=== PATIENT | female | born 1940 | race Caucasian/White ===

== ENCOUNTER → 2020-09-11 12:25 | Outpatient (CLI) | payer MEDICARE, OTHER, SELFPAY ==
--- NOTE | ~2020-09-11 | MM_ITS ---
EXAMINATION: MM screening sánchez BI w salma HISTORY: Screening TECHNIQUE: Craniocaudal and mediolateral oblique 3-D tomosynthesis images were obtained and synthetic 2-D images were generated. CAD analysis was submitted and interpreted. COMPARISON: Comparison to multiple prior studies sequentially, with oldest reviewed study dated 03/2012. BREAST PARENCHYMAL COMPOSITION: There are scattered areas of fibroglandular density. FINDINGS: There is no evidence of suspicious mass, calcification, or architectural distortion to sugg est malignancy in either breast. There has been no suspicious interval change. IMPRESSION: 1. No mammographic evidence of malignancy. 2. Recommend routine screening mammography in one year. BI-RADS Category 1: Negative Reviewed, dictated and finalized at location A. R DEVELOPMENT ENGINEER
== END ==
PROVIDERS: PCP Family Medicine; Visit Provider Family Medicine
DX: Z12.31 Encounter for screening mammogram for malignant neoplasm of breast (principal)
CPT/HCPCS: 77063; 77067

== ENCOUNTER 2022-05-17 13:37 | Outpatient (CLI) | payer MEDICARE, OTHER, SELFPAY ==
[2022-05-17 17:48] LABS: Urine Cotinine NEGATIVE
== END 2022-05-17 13:38 | disposition home or self-care (01) ==
LOC: ANHSURGERY 13:55
PROVIDERS: PCP Nurse Practitioner Adult Health; Visit Provider Orthopaedic Surgery
DX: M16.11 Unilateral primary osteoarthritis, right hip (principal); Z01.818 Encounter for other preprocedural examination
CPT/HCPCS: 80307; 87070

== ENCOUNTER 2022-06-01 10:40 | Inpatient (IN) | payer MEDICARE, OTHER, SELFPAY ==
--- NOTE | 2022-05-17 13:49 | PC.NURSE ---
PRE-OP INSTRUCTIONS, PLEASE READ CAREFULLY Report to the Outpatient Waiting Room, entrance under the green pavilion located off [facility], at time _0600_ on date _05/31/22_. OR Time: _0730_. - You and your visitor will be asked to self-screen and do not enter if you have any COVID symptoms. - A mask is required within the hospital. - Only one visitor and NO children visitors are allowed at this time. - The patient visitor is requested to leave or wait in car when not with patient due to restrictions. - PACK A SMALL OVERNIGHT BAG AND LEAVE IN THE CAR ALONG WITH YOUR WALKER. VISITING HOURS 10AM-8PM. PARK IN FRONT PARKING LOT AND USE MAIN HOSPITAL ENTRANCE. Patients may have clear liquids (water, carbonated beverages, clear teas, apple juice) until 3 hours prior to surgery (0430 AM) with a maximum of 20 ounces. - No food from midnight until time of surgery Take the following medications with a SIP of water the morning of surgery: _NONE__ Medications to discontinue per DR. JESSICA - _ALEVE 7 DAYS PRIOR TO SURGERY, Date to take last dose 05/23/22_ Medications to discontinue per ANESTHESIA - _VITAMINS AND SUPPLEMENTS 3 DAYS PRIOR TO SURGERY, Date to take last dose 05/27/22_ Please no make-up, nail serbian, hairspray, perfume, deodorant, or body powder the day of surgery. No jewelry (including any body piercings) or valuables the day of surgery, leave them at home. Please take a shower or bath the night before, or the morning of, surgery with an antibacterial soap. Wear comfortable, loose fitting clothing. - Jewelry must be removed prior to entering the operating room. Rings and piercings that are not removed may be cut off. - The hospital will not accept responsibility for valuables. - Please leave all valuables, including medications, at home the day of surgery. If you are going home after surgery, a licensed truck driver instructor must drive you home. - NO public transportation without another adult. - We recommend that an adult stay with you for 24 hours following discharge. - We also recommend that you do not drive, make important decision, drink alcoholic beverages, or take any drugs that were not prescribed by your health care provider for at least 24 hours after your discharge time. Follow any additional instructions given to you from your surgeon. If you or anyone in your household have experienced Covid symptoms in the past week, please notify your surgeon or the nurse liaison at the phone number below for possible testing. Instructions given to ____PT and asked if any additional questions and then verbalized understanding. Patient advised to call surgeon office or pre surgery nurse liaison [phone] if any additional questions.
[2022-05-17 14:14] VITALS: BP 160/74; PULSE 64; RESP 18; TEMP 37.1; O2SAT 96; BMI 28.8
--- NOTE | 2022-05-28 08:34 | PM.IMHP ---
H&P: HPI History of Present Illness Date/Time: 05/28/22 08:34 Chief Complaint: Right hip DJD Narrative: 82-year-old female patient of Zheng Perdue presents today for a right anterior total hip arthroplasty. Patient has had progression of the osteoarthritis of the right hip over the course of the last 9-10 months. She has also had worsening her symptoms. At this point she is having symptoms on a daily basis. It is interfering with her normal activities of daily living. She is a relatively healthy and active 82-year-old and wishes to remain as active as possible. She feels that the pain in the hip is bothering her enough that she would like to proceed with total hip arthroplasty at this point. Review of Systems Review of Systems: All systems reviewed & are unremarkable except as noted in HPI and below PMFSH Social History Social History Smoking status: Never smoker Second hand tobacco smoke exposure: No Additional smoking assessment comments: PT DENIES ALL FORMS OF TOBACCO USE Alcohol intake: current Drinks per week: 1 Substance use: never Substance use type: does not use Spiritual care concerns: No Meds Home Medications and Allergies Home Medications Medication Instructions Recorded Confirmed Type cholecalciferol (vitamin D3) 25 25 mcg PO HS 05/17/22 05/17/22 History mcg (1,000 unit) capsule coenzyme Q10 100 mg capsule 100 mg PO HS 05/17/22 05/17/22 History (CoQ-10) cyanocobalamin (vitamin B-12) 1,000 mcg PO HS 05/17/22 05/17/22 History 1,000 mcg tablet fluorometholone 0.1 % eye 1 drp BID 05/17/22 05/17/22 History drops,suspension hydrochlorothiazide 25 mg tablet 25 mg HS 05/17/22 05/17/22 History irbesartan 300 mg tablet 300 mg HS 05/17/22 05/17/22 History naproxen sodium 220 mg tablet 220 mg PO Q12H PRN Pain 05/17/22 05/17/22 History (Aleve) simvastatin 20 mg tablet 20 mg HS 05/17/22 05/17/22 History timolol maleate 0.5 % eye drops 1 drp BID 05/17/22 05/17/22 History vit C 250 mg-vit E 90 mg-zinc 40 1 tablet PO HS 05/17/22 05/17/22 History mg-copper 1 [id number] capsule (PreserVision AREDS-2) Allergies Allergy/AdvReac Type Severity Reaction Status Date / Time bacitracin AdvReac Rash Verified 05/17/22 14:16 [From Neosporin ([id number])] neomycin AdvReac Rash Verified 05/17/22 14:16 [From Neosporin ([id number])] polymyxin B AdvReac Rash Verified 05/17/22 14:16 [From Neosporin ([id number]-[id number])] SULFA AdvReac Rash Uncoded 05/17/22 14:16 Exam Narrative: 78-year-old female alert pleasant. She is alert and oriented. She walks with a moderate limp. She is 5 ft 3 and 168 lb. Her right hip flexes to 115, externally rotates to 20 and internally rotates to 10. Range of motion of the hip causes her anterior lateral groin pain. Stinchfield maneuver is weak due to pain in the groin and anterior lateral hip. She has normal abduction strength in the lateral position and no tenderness over the greater trochanter. No swelling in the right lower extremity. She has prominent varicose veins. 2+ dorsalis pedis 1+ post tibial artery pulse. Normal sensation in the right leg. Skin in the hip and groin crease are all normal. 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 She has had significant progression from September of last year, at that time she only had moderate arthritis. Her symptoms bother her on a daily basis. Again she is very active 82-year-old and wishes to remain active. She would like to proceed with total hip arthroplasty. Surgical procedure as well as the risks and com
--- NOTE | 2022-05-28 13:01 | WPDANESEPPF ---
Anes - Initial Pre Proc Eval Procedure: Operation Date: 05/31/22 07:30 Proposed Procedures p Right Total Hip Arthroplasty, Anterior Approach - Kevin Melara MD Date/Time: 05/28/22 13:01 Surgeon: Kevin Melara MD Pre Op Diagnosis: Rt Hip OA Patient Data Age: 82 Gender: F Height: 1.63 m Weight: 76.3 kg Last Vital Signs Temp 98.8 F 05/17/22 14:14 Pulse 64 05/17/22 14:14 Resp 18 05/17/22 14:14 BP 160/74 H 05/17/22 14:14 Pulse Ox 96 05/17/22 14:14 O2 Del Method Room Air 05/17/22 14:14 Allergies Allergy/AdvReac Type Severity Reaction Status Date / Time bacitracin AdvReac Rash Verified 05/31/22 06:35 [From Neosporin ([id number])] neomycin AdvReac Rash Verified 05/31/22 06:35 [From Neosporin ([id number])] polymyxin B AdvReac Rash Verified 05/31/22 06:35 [From Neosporin ([id number]-[id number])] SULFA AdvReac Rash Uncoded 05/31/22 06:35 Home Medications Medication Instructions Recorded Confirmed Type cholecalciferol (vitamin D3) 25 25 mcg PO HS 05/17/22 05/31/22 History mcg (1,000 unit) capsule coenzyme Q10 100 mg capsule 100 mg PO HS 05/17/22 05/31/22 History (CoQ-10) cyanocobalamin (vitamin B-12) 1,000 mcg PO HS 05/17/22 05/31/22 History 1,000 mcg tablet fluorometholone 0.1 % eye 1 drp BID 05/17/22 05/31/22 History drops,suspension hydrochlorothiazide 25 mg tablet 25 mg HS 05/17/22 05/31/22 History irbesartan 300 mg tablet 300 mg HS 05/17/22 05/31/22 History naproxen sodium 220 mg tablet 220 mg PO Q12H PRN Pain 05/17/22 05/31/22 History (Aleve) simvastatin 20 mg tablet 20 mg HS 05/17/22 05/31/22 History timolol maleate 0.5 % eye drops 1 drp BID 05/17/22 05/31/22 History vit C 250 mg-vit E 90 mg-zinc 40 1 tablet PO HS 05/17/22 05/31/22 History mg-copper 1 [id number]-[id number] capsule (PreserVision AREDS-2) Patient hx anesthesia problems: none Family hx anesthesia problems: none Results Review: All pre-operative results and documents have been reviewed as part of the pre-operative evaluation. [facility] Past Medical History Medical History (Updated 05/28/22 @ 13:01 by Silver Bryant MD) Arthritis Hypercholesteremia Hypertension Social History Social History Smoking status: Never smoker Second hand tobacco smoke exposure: No Additional smoking assessment comments: PT DENIES ALL FORMS OF TOBACCO USE Alcohol intake: current Drinks per week: 1 Substance use: never Substance use type: does not use Living arrangements: with family Spiritual care concerns: No Anes - Eval Final PreProcedure Day of Procedure 05/28/22 13:01 Patient weight: normal Heart: regular rate and rhythm Lungs: clear to auscultation Airway: Mallampati scale class III Neurological: alert and oriented Last oral intake: >/= 8 hours ASA classification: II Emergent: no Anesthetic plan: proceed Anesthesia type and monitoring: general ETT and standard monitoring Results Review: All pre-operative results and documents have been reviewed as part of the pre-operative evaluation. Informed Consent: The patient's anesthetic plan and its attendant risks and benefits were discussed with the patient/family/POA. Questions were solicited and answers provided to the satisfaction of the patient/family/POA.
[2022-05-31] VITALS (15 sets, daily range): BP systolic 119–161; BP diastolic 44–72; PULSE 48–67; RESP 9–21; TEMP 36–37.3; O2SAT 94–100
[2022-05-31] MEDS: LACTATED RINGERS 1,000 ML 30 ML IV CONT ×2 (06:48→10:57)
[2022-05-31] MEDS: ACETAMINOPHEN 500 MG TABLET 1000 MG PO ×4 (07:12→23:02)
--- NOTE | 2022-05-31 07:15 | WPDHPUPDATE1 ---
History and Physical Update Update Date/Time: 05/31/22 07:15 History and Physical has been reviewed, including an updated exam of the patient. There are NO changes in the patient's condition. Risks, benefits, and alternatives have been discussed and questions answered. Patient agrees to proceed with procedure.
[2022-05-31] MEDS: TRANEXAMIC ACID 1,000MG/ISO100 1,000 MG/100 ML BAG 200 MG IVPB (07:16)
[2022-05-31] MEDS: ceFAZolin 2 GM/D5W 50 ML 2 GM/50 ML BAG IVPB (07:28)
[2022-05-31] MEDS: ceFAZolin SODIUM 1 GM VIAL 3 GM IRRIGATION (08:15)
[2022-05-31] MEDS: TRANEXAMIC ACID 1,000 MG/10 ML AMPUL 1000 MG IV PUSH (10:29)
[2022-05-31] MEDS: ceFAZolin SODIUM 1 GM VIAL IV PUSH (10:29)
--- NOTE | 2022-05-31 10:41 | W.PM.PROC2 ---
Procedure Note - Detailed Date of Procedure 05/31/22 Pre-op Diagnosis Rt Hip OA Post-op Diagnosis Same Procedure Performed Direct anterior approach right total hip arthroplasty Surgeon Kevin Melara MD Email Marketing Assistant Tracie Description of Procedure Patient was brought to the operating room and general anesthesia was administered. Extra padding placed on the feet which were placed in the boots and she was transferred to the OSI Sharon table. SCDs on the calves and running. Right hip prepped draped usual fashion. 10 cm longitudinal incision was made starting 3 cm lateral to the ASIS. Dissection was carried down to the fascia over the tensor fascia sonal which was longitudinally incised. Fascia was elevated off the anterior 1/2 the tensor fascia sonal muscle. Interval between rectus femoris and tensor fascia sonal developed and the crossing branches of ascending lateral femoral 2nd circumflex vessels were isolated ligated with suture divided. Retractor placed over the anterior surface of the capsule of the hip the hip abducted internally rotated and the gluteus minimus elevated off the lateral capsule. Inverted T capsulotomy was performed. Femoral neck osteotomy was made according to preoperative templating. Sitting quite get low enough to match perfectly the preoperative templating as she had a very low neck cut planned. Femoral head was removed without difficulty. It measured 42-1/2 mm in maximum diameter. The acetabulum was exposed labrum excised. Remaining articular cartilage removed with curette. Hip was externally rotated and extended and the interval between conjoined tendon and piriformis tendon was incised allowing the piriformis to flipped posteriorly. The leg back again in the neutral rotation external rotation and traction the acetabulum was exposed and prepared. We reamed up to a size 45 which achieved peripheral reaming we lightly reamed with a 46 in chose the 46 shell. The trial had an excellent fit. A 46 component was impacted and seated with an excellent press fit. This was placed at 40? of abduction and anteversion such that the anterior rim of the acetabular component was flush with the anterior rim of the [place] acetabulum. A single screw was placed into the ilium for additional fixation and the 28 mm inner diameter liner was impacted into the 46 shell thought difficulty. The femur was broached up to a size 3. We could see that had a tiny bit of wiggle. We trialed with the +5 and saw that we were a little bit high on the neck cut. We calcar planed and used a sought to accomplish that and we were able to seat the size 4 broach 2 mm below level of the previously cut neck and on trying with a 1.5 we had equal offset. We increased the leg length as planned by about 4 mm from preop and had appropriate stability. Four broach had complete torsional stability and could not be removed with the concise gun but needed the single offset broach handle and mallet to remove it it was quite tight. We calcar planed again and seated the real size 4 high offset Actis stem which again achieved an excellent tight fit. We trialed 1 more time the 1.5 head had ample shock. The 5 head was too tight no Shuck. We chose the 1.5 stainless steel head which was impacted firmly on the clean and dried trunnion. The wound again was irrigated with antibiotic solution and the hip reduced stability reconfirmed. Arthrotomy was closed using 2. Vicryl was in the capsule reapproximated superiorly and local anesthetic injection injection placed in the periarticular soft tissues. Fascia was closed with running 1. Vicryl skin with 2 subcutaneous Vicryl and glue EBL was 350. A drain was placed deep in the subcu layer. She received 125 back as Cell Saver. 3rd g Ancef 2nd g tranexamic acid given at time of wound closure. Bone quality was very good we will our be weight-bearing as tolerated postoperatively. Implants Nimbus Cloud Appsuy Estimated Blood Loss 350 Drains Yes Pathology None s
--- NOTE | 2022-05-31 11:02 | PM.OP ---
Procedure Note - Brief Procedure Note - Brief Date of procedure: 05/31/22 Pre-op diagnosis: Rt Hip OA Right hip DJD Procedure performed: Right anterior total hip arthroplasty Description of procedure: 82-year-old female who underwent right total hip arthroplasty on 05/31. Was involved in the procedure including positioning patient on the OR table. Draping as well as assisting to the time of surgery as a 1st assist. Assisting patient to recovery room as well. 3-1/2 hours were spent. Surgeon: RODRIGO Harry
--- NOTE | 2022-05-31 13:01 | ADMGEN ---
This patient, Donna Good, was admitted to 2 Medical Room 246-01. Patient/family oriented to hospital policies and general routines including ID bracelet, bed and alarms, visiting hours, pain management, procedures, bathroom and other care routines, personal items, smoking policy, room service/diet, and visiting hours. Information on how to activate the Rapid Response Team has been discussed. Patient/Family are encouraged to report perceived risks to care and to ask questions if they do not understand what they are told or what they should do. Report received from Abby PIERRE
[2022-05-31] MEDS: oxyCODONE HCL (*CRX) 2.5 MG TAB IR PO ×3 (13:39→20:20)
--- NOTE | 2022-05-31 14:40 | WPDCN ---
Assessment and Plan Assessment and plan (1) Osteoarthritis of right hip: Code(s): M16.11 - Unilateral primary osteoarthritis, right hip Status: Acute Assessment and Plan: Postoperative day 0 status post direct anterior approach right total hip arthroplasty. Wound care, pain control, and DVT prophylaxis deferred to Dr. Melara. Check labs in a.m.; hemoglobin hematocrit ordered for this evening given EBL. PT/OT consulted. (2) Hypertension: Code(s): I10 - Essential (primary) hypertension Status: Acute Assessment and Plan: Blood pressures are stable postoperatively. Resume antihypertensives and monitor daily. (3) Hypercholesteremia: Code(s): E78.00 - Pure hypercholesterolemia, unspecified Status: Acute Assessment and Plan: Continue statin. Check LFTs in a.m. Plan Thank you for allowing us to participate in this patient's care. Please do not hesitate to contact us with any questions. Supervising physician for this medical consultation is Dr. Jevon Medina. HPI Data of Consult Date/Time: 05/31/22 14:40 Requesting Physician: Kevin Melara MD Consult Narrative Reason for consult: Postoperative medical management. Narrative: This is a pleasant 82-year-old female with hypertension and hypercholesterolemia whom the hospitalist service has been consulted for help managing her medical condition postoperatively. She reports progressive pain in her right hip related to degenerative joint disease over the past 9 to 10 months and unfortunately she continues to have symptoms on a daily basis despite outpatient treatments. She elected for surgery today and she is now status post direct anterior approach right total hip arthroplasty per Dr. Melara. Her surgery was performed under general anesthesia with no immediate complications documented an estimated blood loss of 350 mL. She has had some nausea but no vomiting and she was able to eat some turkey for lunch. Her pain and is well controlled at this time and she has no specific complaints. She specifically denies fever, chills, sweats, chest pain, shortness breast, vomiting, and paresthesias/skin color/temperature changes distal to the surgical site. Upon discharge she will return home with her of 58 years (anniversary was yesterday) and he will be helping her out as needed. Review of Systems Review of Systems: Twelve systems were reviewed and are negative except for as per HPI. 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 History of left breast biopsy (03/22/00) Benign histology. 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 Social History Social History (Updated 05/31/22 @ 14:23 by Ingrid Hobbs PA-C) Social History: Surrogate medical decision maker: Drew Good, spouse. Code status: Full code. Smoking status: Never smoker Second hand tobacco smoke exposure: No Alcohol intake: current Drinks per week: 1 Substance use: never Substance use type: does not use Living arrangements: with family Occupation/Education: retired Spiritual care concerns: No Meds Home Medications and Allergies Home Medications Medication Instructions Recorded Confirmed Type cholecalciferol (vitamin D3) 25 25 mcg PO HS 05/17/22 05/31/22 History mcg (1,000 unit) capsule coenzyme Q10 100 mg capsule 100 mg PO HS 05/17/22 05/31/22 History (CoQ-10) cyanocobalamin (vitamin B-12) 1,000 mcg PO HS 05/17/22 05/31/22 History 1,000 mcg tablet fluorometholone 0.1 % eye 1 drp BID 05/17/22 05/31/22 History drops,suspension hydrochlorothiazide 25 mg tablet 25 mg HS 05/17/22 05/31/22 Histor
[2022-05-31] MEDS: SENNA/DOCUSATE SODIUM TABLET 2 TAB PO (17:04)
[2022-05-31 18:34] LABS: Hematocrit 33.9 % (37.0-47.0); Hemoglobin 11.2 g/dL (12.0-15.0)
[2022-05-31] MEDS: FAMOTIDINE 20 MG TABLET PO (20:19)
[2022-05-31] MEDS: CHOLECALCIFEROL 1,000 UNITS TABLET 1000 UNITS PO (20:19)
[2022-05-31] MEDS: hydroCHLOROthiazide 25 MG TABLET BY MOUTH (20:20)
[2022-05-31] MEDS: SIMVASTATIN 20 MG TABLET BY MOUTH (20:20)
[2022-05-31] MEDS: IRBESARTAN 150 MG TABLET 300 MG BY MOUTH (20:20)
[2022-05-31] MEDS: TIMOLOL MALEATE 0.5% OP SOLN 5 ML BOTTLE 1 DROP EACH EYE (20:21)
[2022-06-01] VITALS (7 sets, daily range): BP systolic 102–132; BP diastolic 49–57; PULSE 51–76; RESP 14–18; TEMP 36.1–36.7; O2SAT 93–97
--- NOTE | ~2022-06-01 | XR_ITS ---
EXAMINATION: XR hip RT 1V w AP pelvis DATE: 05/31/2022 10:56 INDICATION: Total right hip arthroplasty. Postop. TECHNIQUE: An anteroposterior view of the pelvis and single view of right hip were obtained. COMPARISON: None. FINDINGS: There is a total right hip arthroplasty in near-anatomic alignment. No fracture. There is m ild left hip osteoarthritis. There is gas in the soft tissues around right hip, consistent with recen t surgery. A surgical drain is noted. IMPRESSION: 1. Total right hip arthroplasty in near-anatomic alignment. 2. Mild left hip osteoarthritis. Reviewed, dictated and finalized at location A.
--- NOTE | ~2022-06-01 | XR_ITS ---
EXAMINATION: XR surgery orthopedic DATE: 05/31/2022 10:31 INDICATION: Intraoperative evaluation during right total hip arthroplasty TECHNIQUE: Single fluoroscopic frontal images of the right hip was obtained during procedure performe d by Dr. Melara. Radiologist was not present for the procedure or imaging. The amount of fluoroscopy time used during this procedure was 0.5 minutes. COMPARISON: None. FINDINGS: Intraoperative image during a right total hip arthroplasty demonstrate placement of a noncemented rig ht total hip arthroplasty which is in near-anatomic alignment. The acetabular component is affixed wi th at least a single screw. Portions of the pelvis are obscured excluded from the [id number]. No f ractures in the visualized bones. Expected small amount of gas in the soft tissues of the operative b ed. IMPRESSION: 1. Expected appearance during right total hip arthroplasty. Reviewed, dictated and finalized at location A.
[2022-06-01] MEDS: oxyCODONE HCL (*CRX) 2.5 MG TAB IR PO ×3 (01:01→08:47)
[2022-06-01] MEDS: ACETAMINOPHEN 500 MG TABLET 1000 MG PO ×3 (05:01→17:02)
[2022-06-01 05:12] LABS: Basophils Percent Auto 0.3 % (0.2-1.2); Hematocrit 32.6 % (37.0-47.0); Hemoglobin 11.1 g/dL (12.0-15.0); Immature Granulocyte Absolute 0.08 K/mm3 (0.00-0.031); Immature Granulocyte Percent A 0.5 % (0-0.5); Lymphocytes Absolute Auto 1.16 K/mm3 (0.9-3.2); Lymphocytes Percent Auto 7.4 % (18.3-44.2); Mean Corpuscular Hemoglobin 34.2 pg (26-34); Mean Corpuscular Volume 100.3 fl (80-100); Mean Platelet Volume 11.7 fl (7.4-10.4); Monocytes Absolute Auto 0.9 K/mm3 (0.1-0.6); Monocytes Percent Auto 5.5 % (2.6-8.5); Neutrophils Absolute Auto 13.6 K/mm3 (1.3-6.7); Neutrophils Percent Auto 86.3 % (45.5-73.1); Platelet Count Result 172 k/mm3 (150-375); Red Blood Count 3.25 M/mm3 (4.2-5.4); Red Cell Distribution Width 12.6 % (11.5-14.5); White Blood Count 15.8 K/mm3 (4.5-10.0)
[2022-06-01 05:34] LABS: Alanine Aminotransferase 20 U/L (6-35); Alkaline Phosphatase 66 U/L (38-126); Anion Gap 3 mmol/L (8-16); Aspartate Amino Transferase 36 U/L (14-36); Bilirubin,Total 1.9 mg/dL (0.2-1.3); Blood Urea Nitrogen 24 mg/dL (7-17); Calcium 8.3 mg/dL (8.4-10.2); Carbon Dioxide 27 mmol/L (22-30); Chloride 94 mmol/L (98-107); Estimated CRCL calculation 43 ml/min; Estimated Glomerular Filt Rate 60; Glucose 127 mg/dL (65-110); Magnesium 1.4 mg/dL (1.6-2.3); Potassium 3.9 mmol/L (3.4-5.0); Sodium 124 mmol/L (137-145)
[2022-06-01 07:40] LABS: Iron 103 ug/dL (37-170)
[2022-06-01 07:47] LABS: Transferrin 186 mg/dL (206-381)
[2022-06-01 07:51] LABS: Percent Iron Saturation 35 % (20-50)
[2022-06-01 07:52] LABS: NT Pro B Type Natriuretic Pept 372 pg/mL (5-100)
[2022-06-01] MEDS: MAGNESIUM SULF 4 GM/WATER100ML 4 GM/100 ML BAG IVPB (08:44)
[2022-06-01] MEDS: APIXABAN 2.5 MG TABLET PO ×2 (08:45→20:10)
[2022-06-01] MEDS: SENNA/DOCUSATE SODIUM TABLET 2 TAB PO ×2 (08:45→17:02)
[2022-06-01] MEDS: FAMOTIDINE 20 MG TABLET PO (08:45)
[2022-06-01] MEDS: polyethylene glycoL 3350 17 GM POWD.PACK PO (08:45)
[2022-06-01] MEDS: MELOXICAM 7.5 MG TABLET PO (08:45)
[2022-06-01] MEDS: TIMOLOL MALEATE 0.5% OP SOLN 5 ML BOTTLE 1 DROP EACH EYE ×2 (08:45→20:10)
[2022-06-01] MEDS: SODIUM CHLORIDE 0.9% IV 1,000 ML 100 ML IV CONT ×2 (08:47→20:10)
[2022-06-01 08:50] LABS: Folic Acid 6.2 ng/mL (2.76->20)
[2022-06-01] MEDS: ONDANSETRON INJ 4 MG/2 ML VIAL IV PUSH (09:17)
--- NOTE | 2022-06-01 09:30 | PM.IMPN ---
Progress Note: A&P Assessment and Plan (1) S/P hip replacement: Code(s): Z96.649 - Presence of unspecified artificial hip joint Status: Acute Assessment and Plan: Postoperative day 1 status post direct anterior approach right total hip arthroplasty. Wound care per ortho Ice pack Pain medications oxycodone 2.5mg PO Q4H DANA and PRN, Meloxicam 7.5mg PO Daily Zofran for nausea PT/OT DVT Eliquis 2.5mg PO Q12H (2) Osteoarthritis of right hip: Code(s): M16.11 - Unilateral primary osteoarthritis, right hip Status: Acute Assessment and Plan: See above (3) Hyponatremia: Code(s): E87.1 - Hypo-osmolality and hyponatremia Status: Acute Assessment and Plan: Na is currently 124 NS at 100ml/hr BNP 372 Could be overload Not seeing dehydration Trend labs Q6H sodium labs (4) Hypertension: Code(s): I10 - Essential (primary) hypertension Status: Acute Assessment and Plan: BP is 132/57 Trend BP Continue home HCTZ, irbesartan 300mg PO HS Adjust therapy as indicated (5) Hypercholesteremia: Code(s): E78.00 - Pure hypercholesterolemia, unspecified Status: Acute Assessment and Plan: Continue statin (6) Hypomagnesemia: Code(s): E83.42 - Hypomagnesemia Status: Acute Assessment and Plan: Current Mag 1.4 Replace with 4gm Trend labs Labs in the am (7) Anemia: Code(s): D64.9 - Anemia, unspecified Status: Acute Assessment and Plan: H/H stable at 11.1/32.8 Anemia labs iron 103, TIBC 291,% saturation 35, transferrin 186, ferritin 258, B12 934, folate 6.2 No indication for supplementation at this time Probably related to acute blood loss anemia from hip replacement Continue to trend labs Time Spent With Patient Time with patient: Greater than 35 minutes Subjective Date/time seen: 06/01/22929 Interval history: 06/01/22929 Patient stated that she is very nauseated today. She stated that it started later in the day yesterday. She did state that she was able to get some food down yesterday however she has not tried to eat today. Her pain is a 0/10. She denies any chest pain, shortness of breath, constipation or diarrhea. She stated that her last bowel movement was 05/30/2022. She does have fear of having constipation because her had bad constipation when he got his surgery. Patient appears stable today. Sodium appears low at 124. Fluids have been started. 05/31/22? 14:40 This is a pleasant 82-year-old female with hypertension and hypercholesterolemia whom the hospitalist service has been consulted for help managing her medical condition postoperatively. She reports progressive pain in her right hip related to degenerative joint disease over the past 9 to 10 months and unfortunately she continues to have symptoms on a daily basis despite outpatient treatments. She elected for surgery today and she is now status post direct anterior approach right total hip arthroplasty per Dr. Melara. Her surgery was performed under general anesthesia with no immediate complications documented an estimated blood loss of 350 mL. She has had some nausea but no vomiting and she was able to eat some turkey for lunch. Her pain and is well controlled at this time and she has no specific complaints. She specifically denies fever, chills, sweats, chest pain, shortness breast, vomiting, and paresthesias/skin color/temperature changes distal to the surgical site. Upon discharge she will return home with her of 58 years (anniversary was yesterday) and he will be helping her out as needed. Review of Systems Review of Systems: All systems reviewed & are unremarkable except as noted in HPI and below Exam Const: General: cooperative, no acute distress, well developed, alert and awake Nutritional Appearance: well nourished Kyrie
--- NOTE | 2022-06-01 09:30 | P.PNIM_ITS ---
Progress Note: A&P Assessment and Plan (1) S/P hip replacement: Code(s): Z96.649 - Presence of unspecified artificial hip joint Status: Acute Assessment and Plan: * Postoperative day 1 * status post direct anterior approach right total hip arthroplasty. * Wound care per ortho * Ice pack * Pain medications oxycodone 2.5mg PO Q4H DANA and PRN, Meloxicam 7.5mg PO Daily * Zofran for nausea * PT/OT * DVT Eliquis 2.5mg PO Q12H (2) Osteoarthritis of right hip: Code(s): M16.11 - Unilateral primary osteoarthritis, right hip Status: Acute Assessment and Plan: * See above (3) Hyponatremia: Code(s): E87.1 - Hypo-osmolality and hyponatremia Status: Acute Assessment and Plan: * Na is currently 124 * NS at 100ml/hr * BNP 372 * Could be overload * Not seeing dehydration * Trend labs * Q6H sodium labs (4) Hypertension: Code(s): I10 - Essential (primary) hypertension Status: Acute Assessment and Plan: * BP is 132/57 * Trend BP * Continue home HCTZ, irbesartan 300mg PO HS * Adjust therapy as indicated (5) Hypercholesteremia: Code(s): E78.00 - Pure hypercholesterolemia, unspecified Status: Acute Assessment and Plan: * Continue statin (6) Hypomagnesemia: Code(s): E83.42 - Hypomagnesemia Status: Acute Assessment and Plan: * Current Mag 1.4 * Replace with 4gm * Trend labs * Labs in the am (7) Anemia: Code(s): D64.9 - Anemia, unspecified Status: Acute Assessment and Plan: * H/H stable at 11.1/32.8 * Anemia labs iron 103, TIBC 291,% saturation 35, transferrin 186, ferritin 258, B12 934, folate 6.2 * No indication for supplementation at this time * Probably related to acute blood loss anemia from hip replacement * Continue to trend labs Time Spent With Patient Time with patient: Greater than 35 minutes Subjective Date/time seen: 06/01/22929 Interval history: 06/01/22929 Patient stated that she is very nauseated today. She stated that it started later in the day yesterday. She did state that she was able to get some food down yesterday however she has not tried to eat today. Her pain is a 0/10. She denies any chest pain, shortness of breath, constipation or diarrhea. She stated that her last bowel movement was 05/30/2022. She does have fear of having constipation because her had bad constipation when he got his surgery. Patient appears stable today. Sodium appears low at 124. Fluids have been started. 05/31/22? 14:40 This is a pleasant 82-year-old female with hypertension and hypercholesterolemia whom the hospitalist service has been consulted for help managing her medical condition postoperatively. She reports progressive pain in her right hip related to degenerative joint disease over the past 9 to 10 months and unfortunately she continues to have symptoms on a daily basis despite outpatient treatments. She elected for surgery today and she is now status post direct anterior approach right total hip arthroplasty per Dr. Melara. Her surgery was performed under general anesthesia with no immediate complications documented an estimated blood loss of 350 mL. She has had some nausea but no vomiting and she was able to eat some turkey for lunch. Her pain and is well controlled at this time and she has no specific complaints. She specifically denies fever,
--- NOTE | 2022-06-01 10:35 | PM.PNORT ---
Progress Note: A&P Assessment and Plan (1) S/P hip replacement: Code(s): Z96.649 - Presence of unspecified artificial hip joint Status: Acute Plan Patient is postop day 1 after total hip arthroplasty. Yesterday she felt well all day although she was sleepy. Today she feels nauseated. Her laboratory studies show that her hemoglobin is stable at 11.1 platelets [id number] white blood count elevated at 15.8 which is nonspecific. Her metabolic panel shows that her sodium is 124. She had labs done at outside institution on May 07 and her sodium at that time was 142. She is alert and oriented in bed with breakfast in front of her but she is not very hungry. I have put her in hydrochlorothiazide on hold as this can cause hyponatremia. The hospitalist has started her on 100 cc/hour of normal saline. She has been drinking a lot of plain water and drinking entire pitcher earlier this morning. I would advise her to minimize the free water and just take sips if she needs to keep her throat moist and comfortable. Will ask the nurses to monitor I's and o's carefully. We will discontinue the scheduled oxycodone 2.5 mg and just use the p.r.n. oxycodone 2.5 mg. Have ordered a repeat sodium for 4:00 p.m. today. I ordered a BMP and CBC for the morning. Patient will need to be formally admitted due to hyponatremia that is symptomatic complicating her hip replacement yesterday. Subjective Subjective Date/Time Seen: 06/01/22 10:35 Objective Data Vital Signs Vital Signs: Vital Signs - 24 hr 05/31/22 10:57 05/31/22 11:10 05/31/22 11:25 Temperature 37.3 C Pulse Rate 58 L 51 L 48 L Respiratory Rate 9 L 10 L 10 L Blood Pressure 126/59 L 124/58 L 142/59 H Pulse Oximetry 98 98 98 Oxygen Delivery Simple Face Mask Simple Face Mask Simple Face Mask Oxygen Flow Rate 10 10 10 05/31/22 11:40 05/31/22 11:55 05/31/22 12:10 Temperature Pulse Rate 52 L 53 L 56 L Respiratory Rate 10 L 10 L 12 Blood Pressure 142/64 H 147/66 H 154/59 H Pulse Oximetry 100 97 100 Oxygen Delivery Simple Face Mask Room Air Room Air Oxygen Flow Rate 10 05/31/22 12:25 05/31/22 12:40 05/31/22 13:00 Temperature 36.2 C L Pulse Rate 50 L 50 L 55 L Respiratory Rate 12 12 20 Blood Pressure 159/72 H 161/59 H 144/57 H Pulse Oximetry 100 97 97 Oxygen Delivery Room Air Room Air Oxygen Flow Rate 05/31/22 13:15 05/31/22 13:28 05/31/22 13:59 Temperature 36.1 C L Pulse Rate 52 L Respiratory Rate 16 Blood Pressure 130/53 L Pulse Oximetry 95 Oxygen Delivery Room Air Room Air Oxygen Flow Rate 05/31/22 13:45 05/31/22 14:45 05/31/22 18:35 Temperature 36.3 C L 36.6 C 36.3 C L Pulse Rate 53 L 65 61 Respiratory Rate 18 18 20 Blood Pressure 146/57 H 142/68 H 140/59 L Pulse Oximetry 96 94 96 Oxygen Delivery Oxygen Flow Rate 05/31/22 22:09 06/01/22 01:41 06/01/22 06:35 Temperature 36.2 C L 36.3 C L 36.1 C L Pulse Rate 67 56 L 56 L Respiratory Rate 21 H 18 18 Blood Pressure 119/44 L 102/49 L 132/57 L Pulse Oximetry 100 97 95 Oxygen Delivery Oxygen Flow Rate 06/01/22 09:00 06/01/22 10:10 Temperature 36.3 C L Pulse Rate 51 L Respiratory Rate 14 Blood Pressure 110/50 L Pulse Oximetry 93 Oxygen Delivery Room Air Oxygen Flow Rate Intake/Output Intake/Output: Intake & Output 05/29/22 05/30/22 05/31/22 06/01/22 23:59 23:59 23:59 23:59 Intake Total 1320 1000 Output Total 310 1110 Balance 1010 -110 Meds/Results Medications: Active Medications Generic Name Dose Route Start Last Admin Trade Name Freq PRN Reason Stop Dose Admin Acetaminophen 1,000 mg 05/31/22 12:50 06/01/22 05:01 Acetaminophen 500 Mg Tablet PO 1,000 mg Q6HR DANA Administration Apixaban 2.5 mg 06/01/22 09:00 06/01/22 08:45 Apixaban 2.5 Mg Tablet PO 06/12/22 21:01 2.5 mg Q12HR DANA Administration Diphenhydramine HCl 25 mg 05/31/22 12:50 Diphenhydramine Hcl Inj 50 Mg/Ml Vial IV PUSH
[2022-06-01 12:48] LABS: Sodium 124 mmol/L (137-145)
--- NOTE | 2022-06-01 13:13 | WPDANESPN ---
Anes - Prog Note Post-Op Date/Time: 06/01/22 13:13 Vital Signs: Last Vital Signs Temp 36.3 C L 06/01/22 10:10 Pulse 51 L 06/01/22 10:10 Resp 14 06/01/22 10:10 BP 110/50 L 06/01/22 10:10 Pulse Ox 93 06/01/22 10:10 O2 Del Method Room Air 06/01/22 09:00 O2 Flow Rate 10 05/31/22 11:40 Pain Score (VAS): 0 I/O: Intake & Output 05/31/22 06/01/22 06/01/22 23:59 07:59 15:59 Intake Total 770 1000 Output Total 250 1110 Balance 520 -110 Laboratory Tests 06/01/22 04:55 06/01/22 12:29 05/31/22 05/31/22 06/01/22 15:10 18:15 04:55 WBC 15.8 H RBC 3.25 L Hgb 11.2 L 11.1 L Hct 33.9 L 32.6 L MCV 100.3 H MCH 34.2 H MCHC 34.0 RDW 12.6 Plt Count 172 MPV 11.7 H Immature Gran % (Auto) 0.5 Neut % (Auto) 86.3 H Lymph % (Auto) 7.4 L [place] % (Auto) 5.5 Eos % (Auto) 0.0 Baso % (Auto) 0.3 Lymph # (Auto) 1.16 [place] # (Auto) 0.9 H Eos # (Auto) 0.0 Baso # (Auto) 0.0 Abs Immat Gran (auto) 0.08 H Absolute Neuts (auto) 13.6 H Absolute Nucleated RBC 0.0 Nucleated RBC % 0.0 Sodium Potassium Chloride Carbon Dioxide Anion Gap BUN Creatinine Estim Creat Clear Calc Estimated GFR Glucose Calcium Magnesium Iron 103 TIBC 291 % Saturation 35 Transferrin Ferritin 258.00 Total Bilirubin Direct Bilirubin AST ALT Alkaline Phosphatase NT-Pro-B Natriuret Pep Total Protein Albumin Vitamin B12 Folate 06/01/22 06/01/22 06/01/22 04:55 04:55 12:29 WBC RBC Hgb Hct MCV MCH MCHC RDW Plt Count MPV Immature Gran % (Auto) Neut % (Auto) Lymph % (Auto) [place] % (Auto) Eos % (Auto) Baso % (Auto) Lymph # (Auto) [place] # (Auto) Eos # (Auto) Baso # (Auto) Abs Immat Gran (auto) Absolute Neuts (auto) Absolute Nucleated RBC Nucleated RBC % Sodium 124 L 124 L Potassium 3.9 Chloride 94 L Carbon Dioxide 27 Anion Gap 3 L BUN 24 H Creatinine 0.90 Estim Creat Clear Calc 43 Estimated GFR 60 Glucose 127 H Calcium 8.3 L Magnesium 1.4 L Iron TIBC % Saturation Transferrin 186 L Ferritin Total Bilirubin 1.9 H Direct Bilirubin 0.0 AST 36 ALT 20 Alkaline Phosphatase 66 NT-Pro-B Natriuret Pep 372 H Total Protein 7.0 Albumin 4.0 Vitamin B12 934.0 H Folate 6.2 Patient Feedback: Patient satisfied with anesthetic care.
[2022-06-01 15:56] LABS: Sodium 125 mmol/L (137-145)
[2022-06-01 18:55] LABS: Sodium 125 mmol/L (137-145)
[2022-06-01] MEDS: CHOLECALCIFEROL 1,000 UNITS TABLET 1000 UNITS PO (20:10)
[2022-06-01] MEDS: SIMVASTATIN 20 MG TABLET BY MOUTH (20:10)
[2022-06-02] MEDS: ACETAMINOPHEN 500 MG TABLET 1000 MG PO ×3 (00:06→11:36)
[2022-06-02 00:55] LABS: Sodium 125 mmol/L (137-145)
[2022-06-02 03:52] VITALS: BP 121/67; PULSE 58; RESP 18; TEMP 36.4; O2SAT 96
[2022-06-02 05:38] LABS: Basophils Percent Auto 0.4 % (0.2-1.2); Eosinophils Absolute Auto 0.1 K/mm3 (0-0.3); Eosinophils Percent Auto 1.2 % (0-4.4); Hematocrit 30.8 % (37.0-47.0); Hemoglobin 10.4 g/dL (12.0-15.0); Immature Granulocyte Absolute 0.03 K/mm3 (0.00-0.031); Immature Granulocyte Percent A 0.4 % (0-0.5); Lymphocytes Absolute Auto 1.09 K/mm3 (0.9-3.2); Lymphocytes Percent Auto 13.1 % (18.3-44.2); Mean Corpuscular HGB Conc 33.8 g/dl (32-36); Mean Corpuscular Hemoglobin 33.5 pg (26-34); Mean Corpuscular Volume 99.4 fl (80-100); Mean Platelet Volume 12.1 fl (7.4-10.4); Monocytes Absolute Auto 0.7 K/mm3 (0.1-0.6); Monocytes Percent Auto 8.1 % (2.6-8.5); Neutrophils Absolute Auto 6.4 K/mm3 (1.3-6.7); Neutrophils Percent Auto 76.8 % (45.5-73.1); Platelet Count Result 137 k/mm3 (150-375); Red Cell Distribution Width 12.9 % (11.5-14.5); White Blood Count 8.3 K/mm3 (4.5-10.0)
[2022-06-02 05:50] LABS: Alanine Aminotransferase 12 U/L (6-35); Albumin Level 3.4 g/dL (3.5-5.1); Alkaline Phosphatase 61 U/L (38-126); Anion Gap 10 mmol/L (8-16); Aspartate Amino Transferase 24 U/L (14-36); Bilirubin,Total 1.9 mg/dL (0.2-1.3); Blood Urea Nitrogen 16 mg/dL (7-17); Calcium 8.3 mg/dL (8.4-10.2); Carbon Dioxide 25 mmol/L (22-30); Chloride 101 mmol/L (98-107); Estimated CRCL calculation 56 ml/min; Estimated Glomerular Filt Rate > 60; Glucose 103 mg/dL (65-110); Magnesium 2.4 mg/dL (1.6-2.3); Potassium 3.2 mmol/L (3.4-5.0); Sodium 136 mmol/L (137-145)
[2022-06-02] MEDS: SODIUM CHLORIDE 0.9% IV 1,000 ML 100 ML IV CONT (06:03)
--- NOTE | 2022-06-02 07:41 | PM.PNORT ---
Subjective Subjective Date/Time Seen: 06/02/22 07:41 Postop day 2 patient is alert. She is here for awhile signs stable. Sodium is up to 136. She is feeling better. Incision is dry. She has been on multiple times overnight to the rest room. She is only taking Tylenol for pain at this point. We are going to plan to have patient work with physical therapy this morning as well as this afternoon and see our pain level is at that point. Plan is to send her home this afternoon. I will call later this afternoon to determine if she needs to go home on any type of narcotic or if she is tolerating the pain with only the use of the Tylenol. Objective Data Vital Signs Vital Signs: Vital Signs - 24 hr 06/01/22 09:00 06/01/22 10:10 06/01/22 14:20 Temperature 36.3 C L 36.6 C Pulse Rate 51 L 54 L Respiratory Rate 14 16 Blood Pressure 110/50 L 107/52 L Pulse Oximetry 93 94 Oxygen Delivery Room Air 06/01/22 18:04 06/01/22 20:21 06/01/22 20:00 Temperature 36.3 C L 36.7 C Pulse Rate 76 51 L Respiratory Rate 16 18 Blood Pressure 112/52 L 115/49 L Pulse Oximetry 94 94 Oxygen Delivery Room Air 06/01/22 23:46 06/02/22 03:52 Temperature 36.7 C 36.4 C Pulse Rate 56 L 58 L Respiratory Rate 18 18 Blood Pressure 120/49 L 121/67 Pulse Oximetry 94 96 Oxygen Delivery Intake/Output Intake/Output: Intake & Output 05/30/22 05/31/22 06/01/22 06/02/22 23:59 23:59 23:59 23:59 Intake Total 1320 2500 1250 Output Total 310 1560 2700 Balance 1010 940 -1450 Meds/Results Medications: Active Medications Generic Name Dose Route Start Last Admin Trade Name Freq PRN Reason Stop Dose Admin Acetaminophen 1,000 mg 05/31/22 12:50 06/02/22 06:00 Acetaminophen 500 Mg Tablet PO 1,000 mg Q6HR DANA Administration Apixaban 2.5 mg 06/01/22 09:00 06/01/22 20:10 Apixaban 2.5 Mg Tablet PO 06/12/22 21:01 2.5 mg Q12HR DANA Administration Diphenhydramine HCl 25 mg 05/31/22 12:50 Diphenhydramine Hcl Inj 50 Mg/Ml Vial IV PUSH Q6H PRN Itching Irbesartan 300 mg 05/31/22 21:00 05/31/22 20:20 Irbesartan 150 Mg Tablet BY MOUTH 300 mg HS DANA Administration Meloxicam 7.5 mg 06/01/22 08:00 06/01/22 08:45 Meloxicam 7.5 Mg Tablet PO 7.5 mg DAILY@0800 DANA Administration Naloxone HCl 0.1 mg 05/31/22 12:50 Naloxone Hcl 0.4 Mg/Ml Vial IV PUSH Q2M PRN Opiate Reversal Ondansetron HCl 4 mg 05/31/22 12:50 06/01/22 09:17 Ondansetron Inj 4 Mg/2 Ml Vial IV PUSH 4 mg Q4H PRN Administration Nausea And Vomiting Oxycodone HCl 2.5 mg 05/31/22 12:50 Oxycodone Hcl (*Crx) 2.5 Mg Tab Ir PO Q4H PRN Pain Rated 1-3 Polyethylene Glycol 17 gm 06/01/22 09:00 06/01/22 08:45 Polyethylene Glycol 3350 17 Gm Powd.Pack PO 17 gm QAM DANA Administration Senna/Docusate Sodium 2 tab 05/31/22 17:00 06/01/22 17:02 Senna/Docusate Sodium Tablet PO 2 tab BID DANA Administration Simvastatin 20 mg 05/31/22 21:00 06/01/22 20:10 Simvastatin 20 Mg Tablet BY MOUTH 20 mg HS [facility] Administration Timolol Maleate 1 drop 05/31/22 21:00 06/01/22 20:10 Timolol Maleate 0.5% Op Soln 5 Ml Bottle EACH EYE 1 drop Q12HR DANA Administration Vitamin D 1,000 units 05/31/22 21:00 06/01/22 20:10 Cholecalciferol 1,000 Units Tablet PO 1,000 units HS [facility] Administration Radiology Results: ITS Impressions Intraoperative X-Ray 05/31/22 10:40 IMPRESSION: 1. Expected appearance during right total hip arthroplasty. Hip/Pelvis X-Ray 05/31/22 10:58 IMPRESSION: 1. Total right hip arthroplasty in near-anatomic alignment. 2. Mild left hip osteoarthritis. Labs Labs: Laboratory Results - last 24 hr 05/31/22 06/01/22 06/01/22 15:10 04:55 12:29 WBC RBC Hgb Hct MCV MCH MCHC RDW Plt Count MPV Immature Gran % (Auto) Neut % (Auto) Lymph % (Auto) [place] % (Auto) Eos % (A
[2022-06-02 08:00] VITALS: PULSE 73; RESP 18; O2SAT 96
--- NOTE | 2022-06-02 08:08 | PM.DS ---
DS: Admitting Diagnosis Discharge Date 06/02 Admitting Diagnosis right hip DJD DS: Discharge Diagnosis Discharge Diagnosis Plan 82-year-old female who underwent right anterior total arthroplasty 05/31. Underwent the procedure without complications. Postop day 1 her sodium was down to 124. Patient was feeling lightheaded and dizzy when she got up. She was kept for an additional night. IV fluids were continued but p.o. fluids were minimized. Also her narcotics were decreased to 2.5 mg oxycodone p.r.n. instead of scheduled as this could have been causing some lightheadedness as well. Her wound has been dry and is healing nicely. Drain is out. She is weight-bearing as tolerated. Postop day 2 her sodium was up to 136. She was feeling much better overall. She has not done much walking with physical therapy at that point when I saw her the morning of postop day 2. We will have her work with therapy several times today on 06/02 if she continues do well, her pain is well controlled and she is having no dizziness or any other complaint will plan on sending her home later that day. She is on Eliquis for DVT prophylaxis. We will send her home with oxycodone 2.5 mg on a p.r.n. basis. She is on meloxicam 7.5 mg for 10 days for HO prophylaxis. She will also go home on Senokot and MiraLax. She is also taking scheduled Tylenol. Patient was advised when she does go home with this any questions or concerns she is to call the office otherwise we will see her at her appointment dates. We did ask the hospitalist to make any advise minutes on her home meds with regard her blood pressure due to her hyponatremia. DS: Summary Hospital Course Hospital Course: Stable Time Spent with Patient Time attestation: Total time spent providing and/or coordinating discharge services: DS: Data Data Completed and Pending Labs on day of discharge: Labs from last 24 hours 06/02/22 06/02/22 06/02/22 05:07 05:07 00:34 WBC 8.3 RBC 3.10 L Hgb 10.4 L Hct 30.8 L MCV 99.4 MCH 33.5 MCHC 33.8 RDW 12.9 Plt Count 137 L MPV 12.1 H Immature Gran % (Auto) 0.4 Neut % (Auto) 76.8 H Lymph % (Auto) 13.1 L [place] % (Auto) 8.1 Eos % (Auto) 1.2 Baso % (Auto) 0.4 Lymph # (Auto) 1.09 [place] # (Auto) 0.7 H Eos # (Auto) 0.1 Baso # (Auto) 0.0 Abs Immat Gran (auto) 0.03 Absolute Neuts (auto) 6.4 Absolute Nucleated RBC 0.0 Nucleated RBC % 0.0 Sodium 136 L 125 L Potassium 3.2 L Chloride 101 Carbon Dioxide 25 Anion Gap 10 BUN 16 Creatinine 0.70 Estim Creat Clear Calc 56 Estimated GFR > 60 Glucose 103 Calcium 8.3 L Magnesium 2.4 H % Saturation Ferritin Total Bilirubin 1.9 H AST 24 ALT 12 Alkaline Phosphatase 61 Total Protein 6.0 L Albumin 3.4 L Vitamin B12 Folate 06/01/22 06/01/22 06/01/22 18:45 15:08 12:29 WBC RBC Hgb Hct MCV MCH MCHC RDW Plt Count MPV Immature Gran % (Auto) Neut % (Auto) Lymph % (Auto) [place] % (Auto) Eos % (Auto) Baso % (Auto) Lymph # (Auto) [place] # (Auto) Eos # (Auto) Baso # (Auto) Abs Immat Gran (auto) Absolute Neuts (auto) Absolute Nucleated RBC Nucleated RBC % Sodium 125 L 125 L 124 L Potassium Chloride Carbon Dioxide Anion Gap BUN Creatinine Estim Creat Clear Calc Estimated GFR Glucose Calcium Magnesium % Saturation Ferritin Total Bilirubin AST ALT Alkaline Phosphatase Total Protein Albumin Vitamin B12 Folate 06/01/22 05/31/22 04:55 15:10 WBC RBC Hgb Hct MCV MCH MCHC RDW Plt Count MPV Immature Gran % (Auto) Neut % (Auto) Lymph % (Auto) [place] % (Auto) Eos % (Auto) Baso % (Auto) Lymph # (Auto) [place] # (Auto) Eos # (Auto) Baso # (Auto) Abs Immat Gran (auto) Absolute Neuts
[2022-06-02] MEDS: polyethylene glycoL 3350 17 GM POWD.PACK PO (08:11)
[2022-06-02] MEDS: SENNA/DOCUSATE SODIUM TABLET 2 TAB PO (08:12)
[2022-06-02] MEDS: APIXABAN 2.5 MG TABLET PO (08:12)
[2022-06-02] MEDS: MELOXICAM 7.5 MG TABLET PO (08:12)
[2022-06-02] MEDS: TIMOLOL MALEATE 0.5% OP SOLN 5 ML BOTTLE 1 DROP EACH EYE (08:13)
[2022-06-02] MEDS: POTASSIUM CHLORIDE 20 MEQ TABLET 40 MEQ PO (08:50)
[2022-06-02] MEDS: KCL 20 MEQ/SW 100 ML 100 ML 50 MEQ IVPB (10:00)
--- NOTE | 2022-06-02 10:45 | PM.IMPN ---
Progress Note: A&P Assessment and Plan (1) S/P hip replacement: Code(s): Z96.649 - Presence of unspecified artificial hip joint Status: Acute Assessment and Plan: Postoperative day 2 status post direct anterior approach right total hip arthroplasty. Wound care per ortho Ice pack Pain medications oxycodone 2.5mg PO Q4H DANA and PRN, Meloxicam 7.5mg PO Daily Zofran for nausea PT/OT DVT Eliquis 2.5mg PO Q12H (2) Osteoarthritis of right hip: Code(s): M16.11 - Unilateral primary osteoarthritis, right hip Status: Acute Assessment and Plan: See above (3) Hyponatremia: Code(s): E87.1 - Hypo-osmolality and hyponatremia Status: Acute Assessment and Plan: Na is currently 136 NS at 100ml/hr, DC'D at this time BNP 372 Could be overload Not seeing dehydration Trend labs Q6H sodium labs (4) Hypertension: Code(s): I10 - Essential (primary) hypertension Status: Acute Assessment and Plan: BP is 141/75 Trend BP hold home HCTZ, Continue irbesartan 300mg PO HS Adjust therapy as indicated (5) Hypercholesteremia: Code(s): E78.00 - Pure hypercholesterolemia, unspecified Status: Acute Assessment and Plan: Continue statin (6) Hypomagnesemia: Code(s): E83.42 - Hypomagnesemia Status: Acute Assessment and Plan: Current Mag 2.2 Trend labs Labs in the am (7) Anemia: Code(s): D64.9 - Anemia, unspecified Status: Acute Assessment and Plan: H/H stable at 10.4/30.8 Anemia labs iron 103, TIBC 291,% saturation 35, transferrin 186, ferritin 258, B12 934, folate 6.2 No indication for supplementation at this time Probably related to acute blood loss anemia from hip replacement Continue to trend labs Time Spent With Patient Time with patient: Greater than 35 minutes Subjective Date/time seen: 06/02/22 1045 Interval history: 06/02/22 104 Patient is doing okay today. She states that she feels better today. She is also concerned about her blood pressure as she states that she normally runs 140s to 150s systolic LEEP. Currently her blood pressure is 121/67. I explained her to stop her hydrochlorothiazide for right now take her blood pressure twice a day and record the findings take to her primary care provider. Potassium today was 3.2 replacement given. Patient has been work with PT and OT and is stable for discharge. 06/01/22 0930 Patient stated that she is very nauseated today. She stated that it started later in the day yesterday. She did state that she was able to get some food down yesterday however she has not tried to eat today. Her pain is a 0/10. She denies any chest pain, shortness of breath, constipation or diarrhea. She stated that her last bowel movement was 05/30/2022. She does have fear of having constipation because her had bad constipation when he got his surgery. Patient appears stable today. Sodium appears low at 124. Fluids have been started. 05/31/22? 14:40 This is a pleasant 82-year-old female with hypertension and hypercholesterolemia whom the hospitalist service has been consulted for help managing her medical condition postoperatively. She reports progressive pain in her right hip related to degenerative joint disease over the past 9 to 10 months and unfortunately she continues to have symptoms on a daily basis despite outpatient treatments. She elected for surgery today and she is now status post direct anterior approach right total hip arthroplasty per Dr. Melara. Her surgery was performed under general anesthesia with no immediate complications documented an estimated blood loss of 350 mL. She has had some nausea but no vomiting and she was able to eat some turkey for lunch. Her pain and is well controlled at this time and she has no specific complaints. She specifically denies fever,
--- NOTE | 2022-06-02 10:45 | P.PNIM_ITS ---
Progress Note: A&P Assessment and Plan (1) S/P hip replacement: Code(s): Z96.649 - Presence of unspecified artificial hip joint Status: Acute Assessment and Plan: * Postoperative day 2 * status post direct anterior approach right total hip arthroplasty. * Wound care per ortho * Ice pack * Pain medications oxycodone 2.5mg PO Q4H DANA and PRN, Meloxicam 7.5mg PO Daily * Zofran for nausea * PT/OT * DVT Eliquis 2.5mg PO Q12H (2) Osteoarthritis of right hip: Code(s): M16.11 - Unilateral primary osteoarthritis, right hip Status: Acute Assessment and Plan: * See above (3) Hyponatremia: Code(s): E87.1 - Hypo-osmolality and hyponatremia Status: Acute Assessment and Plan: * Na is currently 136 * NS at 100ml/hr, DC'D at this time * BNP 372 * Could be overload * Not seeing dehydration * Trend labs * Q6H sodium labs (4) Hypertension: Code(s): I10 - Essential (primary) hypertension Status: Acute Assessment and Plan: * BP is 141/75 * Trend BP * hold home HCTZ, * Continue irbesartan 300mg PO HS * Adjust therapy as indicated (5) Hypercholesteremia: Code(s): E78.00 - Pure hypercholesterolemia, unspecified Status: Acute Assessment and Plan: * Continue statin (6) Hypomagnesemia: Code(s): E83.42 - Hypomagnesemia Status: Acute Assessment and Plan: * Current Mag 2.2 * Trend labs * Labs in the am (7) Anemia: Code(s): D64.9 - Anemia, unspecified Status: Acute Assessment and Plan: * H/H stable at 10.4/30.8 * Anemia labs iron 103, TIBC 291,% saturation 35, transferrin 186, ferritin 258, B12 934, folate 6.2 * No indication for supplementation at this time * Probably related to acute blood loss anemia from hip replacement * Continue to trend labs Time Spent With Patient Time with patient: Greater than 35 minutes Subjective Date/time seen: 06/02/22 1045 Interval history: 06/02/22 1045 Patient is doing okay today. She states that she feels better today. She is also concerned about her blood pressure as she states that she normally runs 140s to 150s systolic LEEP. Currently her blood pressure is 121/67. I explained her to stop her hydrochlorothiazide for right now take her blood pressure twice a day and record the findings take to her primary care provider. Potassium today was 3.2 replacement given. Patient has been work with PT and OT and is stable for discharge. 06/01/22 0930 Patient stated that she is very nauseated today. She stated that it started later in the day yesterday. She did state that she was able to get some food down yesterday however she has not tried to eat today. Her pain is a 0/10. She denies any chest pain, shortness of breath, constipation or diarrhea. She stated that her last bowel movement was 05/30/2022. She does have fear of having constipation because her had bad constipation when he got his surgery. Patient appears stable today. Sodium appears low at 124. Fluids have been started. 05/31/22? 14:40 This is a pleasant 82-year-old female with hypertension and hypercholesterolemia whom the hospitalist service has been consulted for help managing her medical condition postoperatively. She reports progressive pain in her right hip related to degenerative joint disease over the past 9 to 10 months and unfortunately sh
[2022-06-02 10:50] VITALS: BP 141/75; PULSE 56; RESP 16; TEMP 37; O2SAT 100
--- NOTE | 2022-06-02 13:46 | PC.NURSE ---
On 06/02/22, the student, [Ivonne Terry], provided care and completed [facility] documentation on this patient. I have reviewed the student's documentation and agree with the findings.
[2022-06-02 14:20] VITALS: BP 111/44; PULSE 69; RESP 16; TEMP 36.3; O2SAT 96
[2022-06-02 14:54] LABS: Potassium 3.8 mmol/L (3.4-5.0)
--- NOTE | 2022-06-02 17:01 | PC.NURSE ---
Patient called asking about Meloxicam order from Dr. Melara. She received it from the pharmacy but it was not ordered in her d/c paperwork, so she was advised to call his office in the morning and to verify with them.
== END 2022-06-02 16:10 | disposition home or self-care (01) | DRG 470 ==
LOC: ANHSURGERY 10:43 → ANH2MED 10:43
PROVIDERS: Nurse Practitioner; Physician Assistant; Physician Assistant Surgical; Admitting Provider Orthopaedic Surgery; PCP Nurse Practitioner Adult Health; Visit Provider Orthopaedic Surgery
PROC: 0SR904Z Replacement of Right Hip Joint with Ceramic on Polyethylene Synthetic Substitute, Open Approach (ICD-10-PCS; CPT 27130; principal; 2022-05-31 07:30)
DX: M16.11 Unilateral primary osteoarthritis, right hip (principal); E87.1 Hypo-osmolality and hyponatremia; I10 Essential (primary) hypertension; E78.00 Pure hypercholesterolemia, unspecified; E83.42 Hypomagnesemia; D64.9 Anemia, unspecified; Z88.1 Allergy status to other antibiotic agents; Z88.2 Allergy status to sulfonamides
CPT/HCPCS: 36415; 73501; 80048; 80053; 80076; 82607; 82728; 82746; 83540; 83550; 83735; 83880; 84132; 84295; 84466; 85014; 85018; 85025; 86850; 86900; 86901; 97110; 97116; 97161; 97165; 97530; 97535; 99199; A9270; C1776; J0171; J0690; J1100; J1170; J1885; J2270; J2405; J2704; J2710; J2795; J3010; J3370; J3475; J3480; J7030; J7120

== ENCOUNTER 2022-06-08 12:21 | Outpatient (CLI) | payer MEDICARE, OTHER, SELFPAY ==
--- NOTE | ~2022-06-08 | US_ITS ---
EXAMINATION: US venous doppler LE RT DATE: 06/08/2022 13:08 INDICATION: Right lower limb edema TECHNIQUE: Chong scale images without and with compression and Doppler images of the right lower extre mity veins were obtained. COMPARISON: None FINDINGS: The right common femoral vein, profunda femoral vein, femoral vein, popliteal vein, peronea l trunk, posterior tibial veins, and greater saphenous vein are patent. There is subcutaneous edema p osterior to the knee IMPRESSION: 1. Patent right lower extremity veins. No evidence of deep venous thrombosis. 2. Subcutaneous edema posterior to the knee. Reviewed, dictated and finalized at location B.
[2022-06-08 14:33] LABS: Alanine Aminotransferase 26 U/L (6-35); Albumin Level 4.3 g/dL (3.5-5.1); Alkaline Phosphatase 81 U/L (38-126); Anion Gap 15 mmol/L (8-16); Aspartate Amino Transferase 29 U/L (14-36); Bilirubin,Total 1.2 mg/dL (0.2-1.3); Blood Urea Nitrogen 17 mg/dL (7-17); Calcium 9.4 mg/dL (8.4-10.2); Carbon Dioxide 27 mmol/L (22-30); Chloride 99 mmol/L (98-107); Estimated Glomerular Filt Rate > 60; Glucose 108 mg/dL (65-110); Potassium 3.8 mmol/L (3.4-5.0); Sodium 141 mmol/L (137-145)
--- NOTE | 2022-06-14 13:48 | PM.DS ---
DS: Summary Time Spent with Patient Time attestation: Total time spent providing and/or coordinating discharge services: Discharge Plan Discharge Patient Disposition: Home, Self-Care Discharge Medications: No Action cyanocobalamin (vitamin B-12) 1,000 mcg Tablet 1,000 mcg PO HS simvastatin 20 mg tablet 20 mg HS fluorometholone 0.1 % drops,suspension 1 drp BID Label Comments: EACH EYE hydrochlorothiazide 25 mg tablet 25 mg HS Hold Instructions: until you follow up with your Primary care provider timolol maleate 0.5 % drops 1 drp BID Label Comments: EACH EYE irbesartan 300 mg tablet 300 mg HS cholecalciferol (vitamin D3) 25 mcg (1,000 unit) Capsule 25 mcg PO HS coenzyme Q10 [CoQ-10] 100 mg Capsule 100 mg PO HS PreserVision AREDS-2 250-90-40-1 mg Capsule 1 tablet PO HS polyethylene glycol 3350 [Miralax] 17 gram Powder In Packet 17 g PO QAM Qty: 30 0RF sennosides-docusate sodium [Senokot-S] 8.6-50 mg Tablet 2 tab PO BID Qty: 60 0RF acetaminophen 500 mg Tablet 1,000 mg PO Q6HR Qty: 90 0RF Eliquis 2.5 mg Tablet 2.5 mg PO Q12HR Qty: 69 0RF oxycodone 5 mg tablet 5 mg PO Q4H PRN (Reason: pain) Qty: 20 0RF Rx Instructions: take 1/2 tab q4h prn for pain
== END 2022-06-08 12:22 | disposition home or self-care (01) ==
PROVIDERS: Nurse Practitioner; PCP Nurse Practitioner Adult Health; Visit Provider Orthopaedic Surgery
DX: R60.0 Localized edema (principal); Z96.642 Presence of left artificial hip joint; E87.1 Hypo-osmolality and hyponatremia
CPT/HCPCS: 36415; 80053; 93971

== ENCOUNTER 2022-10-06 14:37 | Outpatient (CLI) | payer MEDICARE, OTHER, SELFPAY ==
--- NOTE | ~2022-10-06 | US_ITS ---
EXAMINATION: US carotid duplex BI DATE: 10/06/2022 15:31 INDICATION: Retinal ischemia. Transient ischemic attack. TECHNIQUE: Grayscale, color Doppler, and pulsed Doppler images of the cervical carotid arteries were obtained. The degree of vessel stenosis is placed in one of the following categories: normal, <50%, 5 0-69%, >=70% but less than near-occlusion, near-occlusion, or total occlusion. Note that percent sten osis relative to normal distal artery lumen diameter is indirectly measured from velocity measurement s as described by Dm, et al. Radiology 2003; 229:340-346. COMPARISON: None. FINDINGS: RIGHT: The right common carotid artery (CCA) peak systolic velocity (PSV) is 60 cm/s. The right internal car otid artery (ICA) PSV is 75 cm/s. The right ICA end-diastolic velocity (EDV) is 21 cm/s. The right IC A/CCA PSV ratio is 1.2. Grayscale and color Doppler images yield an estimate of <50% diameter reducti on from plaque in the ICA. There is antegrade flow in the right vertebral artery. LEFT: The left CCA PSV is 60 cm/s. The left ICA PSV is 72 cm/s. The left ICA EDV is 21 cm/s. The left ICA/C CA PSV ratio is 1.2. Grayscale and color Doppler images yield an estimate of <50% diameter reduction from plaque in the ICA. There is antegrade flow in the left vertebral artery. IMPRESSION: 1. <50% stenosis in the right internal carotid artery. 2. <50% stenosis in the left internal carotid artery. Reviewed, dictated and finalized at location A. SE COLLECTOR SUPERVISOR
== END 2022-10-06 14:38 | disposition home or self-care (01) ==
PROVIDERS: PCP Family Medicine
DX: I65.23 Occlusion and stenosis of bilateral carotid arteries (principal)
CPT/HCPCS: 93880

== ENCOUNTER → 2022-11-09 12:22 | Outpatient (CLI) | payer MEDICARE, OTHER, SELFPAY ==
--- NOTE | ~2022-11-09 | MR_ITS ---
EXAMINATION: MR brain/brain stem wo con DATE: 11/09/2022 13:31 INDICATION: Transient cerebral ischemia. Left eye visual loss. TECHNIQUE: Magnetic resonance imaging (MRI) of the brain and brainstem was performed without intraven ous contrast. COMPARISON: None. FINDINGS: There are a few foci of nonspecific increased T2-weighted signal intensity in the cerebral white matter, which is within normal limits for the patient's age. There is no intracranial hemorrhag e, acute infarction, or abnormal intracranial mass lesion. The ventricles are normal in size. The par anasal sinuses are clear. There are likely changes of ocular lens replacement surgeries. The mastoid air cells are normal. IMPRESSION: 1. Normal brain. Reviewed, dictated and finalized at location A. L CUTTER IMPRESSION: 1. Normal brain.
--- NOTE | ~2022-11-09 | MR_ITS ---
EXAMINATION: MRA brain wo con DATE: 11/09/2022 13:31 INDICATION: Transient cerebral ischemia. Left eye visual loss. TECHNIQUE: Magnetic resonance angiography (MRA) of the brain was performed without intravenous contra st with T1-weighted SPGR by the 3D [id number] technique. Maximum intensity projection 3D-reconstr uctions were obtained. COMPARISON: None. FINDINGS: The vertebral arteries are codominant. There is no significant stenosis of basilar artery or the post erior cerebral arteries. The posterior communicating arteries are normal. There is no significant flaca nosis of the intracranial internal carotid arteries or anterior or middle cerebral arteries. Anterior communicating artery is normal. There is no aneurysm. IMPRESSION: 1. Normal MRA. Reviewed, dictated and finalized at location A. PER ASSEMBLER IMPRESSION: 1. Normal MRA.
== END ==
PROVIDERS: PCP Family Medicine; Visit Provider Family Medicine
DX: G45.9 Transient cerebral ischemic attack, unspecified (principal)
CPT/HCPCS: 70544; 70551

== ENCOUNTER 2022-12-27 13:32 | Outpatient (CLI) | payer MEDICARE, OTHER, SELFPAY ==
--- NOTE | 2022-12-27 | ECHO_ITS ---
Patient Info Name: Donna Good Age: 82 years : 1940 Gender: Female Ht: 64 in Wt: 170 lbs BSA: 1.89 m2 HR: 71 bpm BP: 154 / 83 mmHg Heart Rhythm: Sinus Rhythm Technical Quality: Good Exam Date: 12/27/2022 2:15 PM Exam Location: [facility] Patient Status: Outpatient Admit Date: 12/27/2022 Staff Ordering Physician: Rosy Sykes NP Dock Guard: Lissett Cronin RDCS Attending Provider: Rosy Sykes NP Referring Physician: Onel GIVENS; Exam Type: CA echo doppler color flow Study Info Indications G45.9 - Transient cerebral ischemic attack, unspecified Complete two-dimensional, color flow and Doppler transthoracic echocardiogram is performed. Summary 1. Complete two-dimensional, color flow and Doppler transthoracic echocardiogram is performed. 2. Left ventricular chamber dimension is normal. 3. Left ventricular systolic function is normal, estimated at 65-70%. 4. There is mildly increased left ventricular wall thickness. 5. Left ventricular septal wall motion is abnormal with septal motion related to bundle branch block. 6. The left ventricular diastolic function is grade I diastolic dysfunction. 7. Global longitudinal strain is normal at -20 %. 8. Right ventricular systolic function is normal. 9. There is mild mitral valve regurgitation. 10. There is mild tricuspid valve regurgitation. 11. There is trivial pericardial effusion. Left Ventricle Left ventricular chamber dimension is normal. Left ventricular systolic function is normal, estimated at 65-70%. There is mildly increased left ventricular wall thickness. Left ventricular septal wall motion is abnormal with septal motion related to bundle branch block. The left ventricular diastolic function is grade I diastolic dysfunction. Global longitudinal strain is normal at -20 %. Right Ventricle Right ventricular chamber dimension is normal. Right ventricular systolic function is normal. Left Atria Left atrial chamber dimension is normal. Right Atria Right atrial chamber dimension is normal. Atrial Septum Intact interatrial septum visualized by color flow imaging. Aortic Valve The aortic valve is trileaflet. There is no aortic valve stenosis. There is no aortic valve regurgitation. Pulmonic Valve The pulmonic valve is normal. There is trace pulmonic regurgitation. Mitral Valve The mitral valve has normal leaflets. There is no mitral valve stenosis. There is mild mitral valve regurgitation. Tricuspid Valve There is no significant tricuspid valve stenosis. There is mild tricuspid valve regurgitation. Pericardium/Pleural There is trivial pericardial effusion. Inferior Vena Cava Normal inferior vena cava with >50% collapse upon inspiration consistent with normal right atrial pressure, 3 mmHg. Aorta The aortic root size at the sinus of Valsalva is normal. Left Ventricular Outflow Tract Name Value Normal LVOT 2D LVOT Diameter 2.0 cm LVOT Doppler LVOT Peak Gradient 4 mmHg LVOT Mean Gradient 2 mmHg LVOT VTI
== END 2022-12-27 13:33 | disposition home or self-care (01) ==
LOC: ANHCARD 13:35
PROVIDERS: PCP Family Medicine
DX: G45.9 Transient cerebral ischemic attack, unspecified (principal); I36.1 Nonrheumatic tricuspid (valve) insufficiency; I34.0 Nonrheumatic mitral (valve) insufficiency
CPT/HCPCS: 93306

== ENCOUNTER 2024-06-16 13:40 | Emergency (ER) | payer MEDICARE, OTHER, SELFPAY ==
--- NOTE | ~2024-06-16 | XR_ITS ---
XR ankle RT min 3V Ordering provider: Taisha Echavarria APRN History: . pain . Comparison: None. FINDINGS: BONES: No acute fracture or dislocation. Ossification of the insertion of the abdomen. JOINT SPACES: Cystic area seen in the talus dome most likely degenerative. SOFT TISSUES: Normal. IMPRESSION: No acute osseous abnormality of the right ankle. Reviewed, dictated and finalized at location A.
[2024-06-16 13:55] VITALS: BP 158/71; PULSE 59; RESP 18; TEMP 36.6; O2SAT 98
--- NOTE | 2024-06-16 14:17 | ED.LOWEXIN ---
HPI - Extremity Injury (Lower) General Chief Complaint: Extremity Injury, Lower Stated Complaint: rt ankle injury Source: patient Mode of arrival: ambulatory Limitations: no limitations History of Present Illness HPI Narrative: 84 y/o female presented for c/o right ankle pain x2 days. states she routinely performs ankle exercises, when she noticed the ankle 'cracking.' Endorses pain when walking. Has soaked in Epsom salt and applied ice. Denies known injury but had been doing more housework lately. Has not been wearing her usual compression stockings. Currently rates pain 2/10. Has not needed anything for pain. Denies deformity, redness, warmth, bruising or decreased ROM. Related Data Home Medications Medication Instructions Recorded Confirmed cholecalciferol (vitamin D3) 25 25 mcg PO HS 05/17/22 06/16/24 mcg (1,000 unit) capsule coenzyme Q10 100 mg capsule 100 mg PO HS 05/17/22 06/16/24 (CoQ-10) cyanocobalamin (vitamin B-12) 1,000 mcg PO HS 05/17/22 06/16/24 1,000 mcg tablet fluorometholone 0.1 % eye 1 drp BID 05/17/22 06/16/24 drops,suspension hydrochlorothiazide 25 mg tablet 25 mg HS 05/17/22 06/16/24 irbesartan 300 mg tablet 300 mg HS 05/17/22 06/16/24 simvastatin 20 mg tablet 20 mg HS 05/17/22 06/16/24 timolol maleate 0.5 % eye drops 1 drp BID 05/17/22 06/16/24 vit C 250 mg-vit E 90 mg-zinc 40 1 tablet PO HS 05/17/22 05/31/22 mg-copper 1 [id number] capsule (PreserVision AREDS-2) Allergies Allergy/AdvReac Type Severity Reaction Status Date / Time Sulfa (Sulfonamide Allergy Unknown Rash Verified 06/16/24 14:00 Antibiotics) bacitracin Allergy Rash Verified 06/16/24 14:00 [From Neosporin ([id number])] neomycin Allergy Rash Verified 06/16/24 14:00 [From Neosporin ([id number])] polymyxin B Allergy Rash Verified 06/16/24 14:00 [From Neosporin ([id number])] Review of Systems Review of Systems: CONSTITUTIONAL: Denies body aches, fever, chills CARDIOVASCULAR: Denies chest pain, palpitations, or edema. RESPIRATORY: Denies cough or dyspnea. GASTROINTESTINAL: Denies abdominal pain, nausea, vomiting, or diarrhea. SKIN: Denies rash, itching, or wounds. MUSCULOSKELETAL: reports right ankle pain NEUROLOGIC: Denies headache, numbness, tingling, or weakness. 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 History of left breast biopsy (03/22/00) Benign histology. 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 Social History Social History Social History: Surrogate medical decision maker: Drew Good, spouse. Code status: Full code. Smoking status: Never smoker Second hand tobacco smoke exposure: No Alcohol intake: current Drinks per week: 1 Substance use: never Substance use type: does not use Living arrangements: with family Occupation/Education: retired Spiritual care concerns: No Comments At time of signature, I have reviewed and agree with nursing past medical, surgical, social and family history unless otherwise noted. Please see nursing chart for further information. There is no relevant family history pertinent to the presenting complaint Exam Narrative: GENERAL: Well-appearing CHEST: Speaks in full sentences. No respiratory distress. HEART: Regular rate and rhythm. Normal and equal peripheral pulses. EXTREMITIES: RLE has normal strength and sensation, normal range of motion with flexion/extension/rotation of ankle without pain with movement. Minimal localized swelling just anterior to the
== END 2024-06-16 14:37 | disposition home or self-care (01) ==
PROVIDERS: Emergency Provider Nurse Practitioner Family
DX: M25.571 Pain in right ankle and joints of right foot (principal); M19.90 Unspecified osteoarthritis, unspecified site; E78.00 Pure hypercholesterolemia, unspecified; I10 Essential (primary) hypertension; Z96.641 Presence of right artificial hip joint
CPT/HCPCS: 73610; 99213; G0463

== ENCOUNTER 2024-07-05 15:53 | Emergency (ER) | payer MEDICARE, OTHER, SELFPAY ==
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
[2024-07-05 16:05] VITALS: BP 162/64; PULSE 62; RESP 16; TEMP 36.7; O2SAT 96
[2024-07-05 16:09] VITALS: BP 162/64; PULSE 62; RESP 16; TEMP 36.7; O2SAT 96
== END 2024-07-05 16:29 | disposition home or self-care (01) ==
PROVIDERS: Emergency Provider Nurse Practitioner Family
DX: T22.211A Burn of second degree of right forearm, initial encounter (principal); X19.XXXA Contact with other heat and hot substances, initial encounter; M19.90 Unspecified osteoarthritis, unspecified site; E78.00 Pure hypercholesterolemia, unspecified; I10 Essential (primary) hypertension; Z96.641 Presence of right artificial hip joint
CPT/HCPCS: 99213; G0463

== ENCOUNTER 2024-12-20 12:53 | Emergency (ER) | payer MEDICARE, OTHER, SELFPAY ==
[2024-12-20 13:08] VITALS: BP 149/70; PULSE 64; RESP 18; TEMP 36.3; O2SAT 97
--- OUTSIDE RECORDS SUMMARY | 2024-12-20 13:16 | XMS_ITS | Clinical Summary ---
Author Organization [facility] Address [address] [place] [id number] Care Team Providers Care Lead Massage Therapist Name Role Phone Joseluis Petty MD Primary Care Provider [phone] Allergies Active Allergy Reactions Criticality Noted Date Comments Bacitracin-Polymyxin B Rash Low 05/19/2024 Sulfa Antibiotics Rash Low 05/19/2024 Social History Tobacco Use Types Packs/Day Years Used Date Smoking Tobacco: Never Smokeless Tobacco: Never Tobacco Cessation:Counseling Given: Not Answered Comments Unknown Sex and Gender Information Value Date Recorded Sex Assigned at Not on file Legal Sex Female 2:14 PM CDT Gender Identity Not on file Sexual Orientation Not on file Last Filed Vital Signs Vital Sign Reading Time Taken Comments Blood Pressure 170/66 05/19/2024 2:19 PM CDT Pulse 72 05/19/2024 2:19 PM CDT Temperature 36.4 C (97.6 F) 05/19/2024 2:19 PM CDT Respiratory Rate 16 05/19/2024 2:19 PM CDT Oxygen Saturation 97% 05/19/2024 2:19 PM CDT Inhaled Oxygen Concentration - - Weight 75.4 kg (166 lb 3.6 oz) 05/19/2024 2:19 P M CDT Height 162.6 cm (5' 4 ) 05/19/2024 2:19 PM CDT Body Mass Index 28.53 05/19/2024 2:19 PM CDT Plan of Treatment Health Maintenance Due Date Last Done Comments Zoster Vaccines (1 of 2) 1991 DTaP, Tdap and Td Vaccines (1 - Tdap) 02/11/2001 02/10/2001 Annual Medicare Wellness Visit 2006 Dexa Scan (General) 2006 COVID-19 Vaccine ( season) 2024 08/17/2023, 06/07/2023, 07/10/2022, Additional history exists Influenza Adult (#1) 2024 07/15/2020, 10/15/19 20 Pneumococcal Vaccine: 65+ Years Completed 10/15/2019, 10/09/2006 RSV Immunization or 60+ Years Completed 08/17/2023 Meningococcal B Vaccine Aged Out No l onger eligible based on patient's age to complete this topic Meningococcal Vaccine Aged Out No isaiah saundra eligible based on patient's age to complete this topic RSV Immunizations Under 20 Months Aged Out No longer eligible based on patient's age to complete this topic Insurance [facility] MEDIC[facility] Care Teams Lead Massage Therapist Relationship Specialty Start Date End Date Joseluis Petty MD [address] [place] [address] PCP - General INTERNAL MEDICINE 05/19/24
--- OUTSIDE RECORDS SUMMARY | 2024-12-20 13:16 | XMS_ITS | Clinical Summary ---
Author Organization [facility] [place] [facility] [place] Address [address] [place] [address] Care Team Providers Care Demonstrator Sales Name Role Phone Dannielle Perdue NP Unavailable [phone] Guy Muñoz Primary Care Provider [phone] Allergies Active Allergy Reactions Criticality Noted Date Comments Bacitracin-Polymyxin B Rash Medium 05/19/2024 Sxgvcjzx-Edjpzbxokg-Spuzkxfka Unknown 2021 Sulfa (Sulfonamide Antibiotics) Unknown,Rash Medium Medications hydroCHLOROthia zide (HYDRODIURIL) 25 mg tablet Take 1 tablet (25 mg total) by mouth daily Active irbesartan (AVAPRO) 300 mg tablet Take 1 tablet (300 mg total) by mouth nightly Active simvastatin (ZOCOR) 20 mg tablet Take 1 tablet (20 mg total) by mouth nightly Active timoloL (BETIMOL) 0.5 % ophthalmic solution 1 drop 2 (two) times a day Active cholecalciferol , vitamin D3, (D3-2000 ORAL) Take 1 tablet by mouth daily Active coenzyme Q10 10 mg capsule Take 1 capsule (10 mg total) by mouth daily Active aspirin 81 mg enteric coated tablet Take 1 tablet (81 mg total) by mouth daily Active cyanocobalamin (Vitamin B-12) 1,000 mcg tabletIndicatio ns:Prevention of Vitamin B12 Deficiency Take 1 tablet (1,000 mcg total) by mouth daily Active ergocalciferol (VITAMIN D) 50,000 unit capsule Active ketorolac (ACULAR) 0.5 % ophthalmic solution ketorolac 0.5 % eye drops INSTILL 1 DROP IN LEFT EYE FOUR TIMES DAILY Active mupirocin (BACTROBAN) 2 % ointment Active vit C,B-Fw-nadqw-anisha tein-zeaxan (PreserVision AREDS-2) 250-90-40-1 mg capsule Take 2 capsules by mouth daily 0 Active Active Problems Problem Noted Date Diagnosed Date Gilbert's syndrome 07/25/2024 Hyperlipidemia 07/25/2024 Assessment & Plan (07/25/2024 8:16 PM CDT): Chronic stable and historically well controlled Continue simvastatin Order lipid cmp in 6mo Hypomagnesemia 07/25/2024 Iron deficiency anemia 07/25/2024 Assessment & Plan (07/25/2024 8:17 PM CDT): Chronic no current supplement Order iron panel Malignant essential hypertension 07/25/2024 Assessment & Plan (07/25/2024 8:18 PM CDT): Chronic stable and bp at goal Continue hctz and irbesartan Vitamin D deficiency 07/25/2024 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 07/25/2024 Low serum vitamin B12 12/05/2023 Assessment & Plan (07/25/2024 8:18 PM CDT): Chronic stable Continue vit b12 supplelmentn Monitor labs Hypercalcemia 10/11/2023 Impairment of balance 07/19/2023 Mitral valve regurgitation 01/18/2023 History of total right hip replacement 2 ECG abnormal 04/21/2022 Osteoarthritis of right hip 09/20/2021 Resolved Problems Problem Noted Date Diagnosed Date Resolved Date Dysphagia 07/25/2024 07/25/2024 Hyperglycemia 07/25/2024 07/25/2024 Reactive depression (situational) 07/25/2024 07/25/2024 Spider bite wound 07/25/2024 07/25/2024 COVID-19 06/13/2024 07/25/2024 Dysuria 03/13/2024 07/25/2024 Impaired fasting glucose 07/19/2023 Pre-op examination 04/21/2022 Arthritis 11/26/2021 07/25/2024 Pain of right hip joint 10/29/202107/04 Macular degeneration 09/06/2017 024 Encounters Date Type Department Care Team Description 10/22/2024 Telephone [facility] Family Medicine at [address] [place] [address] Guy Muñoz PA Med Refill 09/27/2024 Telephone [facility] Medicine at [address] [place] [address] Guy Muñoz PA Medical Question/Miscellaneous from Last 3 Months Immunizations Immunization Administration Dates Next Due COVID-19 MRNA (MODERNA) .5 M L (50 MCG) VACCINE (12 YEARS AND UP) 08/17/2023 DT 02/10/2001 Influenza, Quadrivalent, Hig h Dose, Preservative Free, Intrr 09/16/2021,07/15/2020 Influenza, Quadrivalent, Split, Intramuscular ,10/15/2019 Influenza, Trivalent, High D ose, Split, Preservative Free, Intramuscular 07/25/2024,10/15/2019 Pneumococcal Conjugate PCV 13 10/15/2019 Pneumococcal Polysaccharide PPV23 10/09/2006 RSV Vaccine, Pref, Recombina nt, Subunit, Adjuvanted, PF, IM (Arexvy) 08/17/2023 Sars-cov-2 Covid-19 Mrna, Bi valent, Original/omicron Ba.1 06/05/2024 Surgical History Surgery Date Site/Laterality Comments BREAST SURGERY CATARACT EXTRACTION LEG SURGERY Medical History Medical History Date Comments Hyperlipidemia Vitamin D deficiency Reactive depression Hypertension Dysphagia Anxiety High bilirubin Eye problem hole in the reti na, has floaters, see Dr. Felix Varicose veins of calf bilateral Family History Medical History Relation Name Comments Hypertension Father Parkinson's Disease Father various viens Father Hyperlipidemia Mother Hypertension Mother Blood Clot Sister Cancer Sister Relation Name Status Comments Brother Father Mother Sister Social History Tobacco Use Types Packs/Day Years Used Date Smoking Tobacco: Former Cigarettes Smokeless Tobacco: Former Tobacco Cessation:Counseling Given: Not Answered AUDIT-C Answer Date Recorded Q1: How often do you have a drink containing alcohol? Never 07/25/2024 Q2: How many drinks containi ng alcohol do you have on a typical day when you are drinking? Patient does not drink Q3: How often do you have si x or more drinks on one occasion? Never 07/25/2024 PHQ-2 Answer Date Recorded PHQ-2 Total Score (If total score is 3 or more points, staff should administer the PHQ-9) 0 07/25/2024 Personal Safety Answer Date Recorded Getting School Help Needed Not on file 09/16 Comments Unknown Sex and Gender Information Value Date Recorded Sex Assigned at Not on file Legal Sex Female 12:00 AM [employer] Gender Identity Female 04/21/2022 1:49 PM CDT Sexual Orientation Not on file Obstetrics History Last Filed Vital Signs Vital Sign Reading Time Taken Comments Blood Pressure 162/70 07/25/2024 10:55 AM CDT Pulse 60 07/25/2024 10:55 AM CDT Temperature 36.3 C (97.3 F) 07/25/2024 10:55 AM CDT Respiratory Rate 18 12/03/2022 10:04 AM [employer]EL[employer] Oxygen Saturation 98% 07/25/2024 10:55 AM CDT Inhaled Oxygen Concentration - - Weight 76.2 kg (168 lb) 07/25/2024 10:55 AM CDT Height 160 cm (5' 3 ) 07/25/2024 10:55 AM CDT Body Mass Index 29.76 07/25/2024 10:55 AM CDT Plan of Treatment Health Maintenance Due Date Last Done Comments Hepatitis B Screening 1958 Zoster Vaccine (1 of 2) 1991 Well Visit 65+ 2006 DTaP/Tdap/Td Vaccine (2 - Tdap) 02/10/2011 1 Osteoporosis Screening-Bone Density Scan 09/16/2023 09/16/2021 Covid-19 Vaccine (2023-2 5 season) 2024 06/05/2024, 06/05/2024, 08/17/2023, Additional history exists Depression Screening 07/25/2025 07/25/2024 Fall Risk Assessment 07/25/2025 07/25/2024 Pneumococcal vaccine 65+ Completed 10/15/2019, 04/2007 Influenza Vaccine Completed 07/25/2024, , 07/15/2020, Additional history exists Insurance MEDICARE [facility]ICARE [facility] Care Teams Demonstrator Sales Relationship Specialty Start Date End Date Guy Muñoz PA [address] [place] [id number] PCP - General Family Medicine 07/25/24 Dannielle Perdue NP [facility] [employer] [facility] [place] [address] Nurse Practitioner 10/22/22
--- OUTSIDE RECORDS SUMMARY | 2024-12-20 13:16 | XMS_ITS | Continuity of Care Document ---
Author Organization [facility] [place] Address [address] [place] [address] [place] [address] Phone Care Team Providers Care Hand Packager Name Role Phone Jim Truong Unavailable Unavailable Procedures Procedure Date Office/outpatient Visit, Est Eye Exam & Treatment Refraction Office/outpatient Visit, Est Fundus Photography W/ Report Advance Directives Directive Yes / No Effective Date File Name No Information Encounters Encounter Description Practice Location Reason(s) For Visit Diagnoses Date Provider Providers Copied on Encounter Office/outpat ient Visit, [facility] [place], [address] [place] [address] [address], [place], [place], [id number], tel:[phone] [facility] No Information 2-201 0 Krishnasamy Jim. [address], [facility], [place]. tel:[phone] [facility], [address] [place] [address] [address], [place], [place], [id number], [place] tel:[phone] [facility] No Information 7-200 9 Krishnasamy Jim. 2421 [facility], [place], [place], [facility], [place]. tel:[phone] Office/outpat ient Visit, [facility] [place], [address] [place] [address] [address], [place], [place], [id number], [place] tel:[phone] [facility] No Information 9-200 7 Felisha Le. [address] [place], [place], [id number], . tel:[phone] Referring Provider: Rey Felisha Waldron, [address] [facility], [place], [address] . tel:[phone] Family History Family Member Type Diagnosis Age At Onset No Information Payers Payer name Insurance type Covered libertarian ID Authoriza tion(s) [place] [id number] [facility] [id number] Social History Type Description Quantity Date Captured Comments Sex Female Smoking Status No Information Chief Complaint And Reason For Visit No Information Reason For Referral Reason For Referral No Information History Of Present Illness Encounter Date Complaint History Of Prese nt Illness No Information Functional Status Date Functional Assessmen t No Information Instructions Date Instruction Additional Infor mation No Information Assessments Type Assessment Date No Information Patient Care Teams Name Effective Dates (start - stop) Status Members No Information
--- OUTSIDE RECORDS SUMMARY | 2024-12-20 13:16 | XMS_ITS | Referral Summary ---
Author Organization [facility] [place] [facility] Address [address] [place] [address] Care Team Providers Care Coach Cleaner Name Role Phone Dannielle Perdue EDGARDO Unavailable [phone] Guy Muñoz Primary Care Provider [phone] Encounters Date Type Department Care Team Description 10/22/2024 Telephone [facility] Family Medicine at [address] [place] [address] Guy Muñoz PA Med Refill 09/27/2024 Telephone [facility] Family Medicine at [address] [place] [phone] Guy Muñoz PA Medical Question/Miscellaneous from Last 3 Months Allergies Active Allergy Reactions Criticality Noted Date Comments Bacitracin-Polymyxin B Rash Medium 05/19/2024 Cuxzxqfk-Csedizmsdn-Sqvpsfkzh Unknown 2021 Sulfa (Sulfonamide Antibiotics) Unknown,Rash Medium [...] mupirocin (BACTROBAN) 2 % ointment Active vit C,Q-Iv-qrmxk-anisha tein-zeaxan (PreserVision AREDS-2) 250-90-40-1 mg capsule Take [...] hip joint 10/29/202107/04 Macular degeneration 09/06/2017 024 Immunizations Immunization Administration Dates Next Due COVID-19 [...] Covid-19 Mrna, Bi valent, Original/omicron Ba.1 06/05/2024 Social History Tobacco Use Types Packs/Day Years [...] on file Legal Sex Female 12:00 AM [employer] Gender Identity Female 04/21/2022 1:49 PM CDT Sexual Orientation Not on file Last Filed Vital Signs Vital Sign Reading Time Taken Comments Blood Pressure 162/70 07/25/2024 10:55 AM CDT Pulse 60 07/25/2024 10:55 AM CDT Temperature 36.3 C (97.3 F) 07/25/2024 10:55 AM CDT Respiratory Rate 18 12/03/2022 10:04 AM [employer] Oxygen Saturation 98% 07/25/2024 10:55 AM CDT Inhaled Oxygen Concentration - - Weight 76.2 kg (168 lb) 07/25/2024 10:55 AM CDT Height 160 cm (5' 3 ) 07/25/2024 10:55 AM CDT Body Mass Index 29.76 07/25/2024 10:55 AM CDT Plan of Treatment Not on file Insurance MEDICARE [facility] MEDICARE [facility] Care Teams Coach Cleaner Relationship Specialty Start Date End Date Guy Muñoz PA [address] [facility] [address] [place] [address] PCP - General Family Medicine 07/25/24 Dannielle Perdue NP [facility] [address] Nurse Practitioner 10/22/22
--- NOTE | 2024-12-20 13:21 | ED.SKABFB ---
HPI - Skin/Abscess/Foreign Bdy General Chief complaint: Skin/Abscess/Foreign Body Stated complaint: Skin/Abscess/Foreign Body / LT Side Source: patient Mode of arrival: ambulatory Limitations: no limitations History of Present Illness HPI narrative: 84-year-old female presented for complaint of small area of red itchy rash under the left breast over the past few days. She endorses a history of a fungal rash is under the breasts and in the groin folds. She says she does not have cream at this time. Any other skin concerns. Related Data Home Medications ?Medication ?Instructions ?Recorded ?Confirmed ?Last Taken ?Type cholecalciferol (vitamin D3) 25 25 mcg PO HS 05/17/22 07/05/24 05/27/22 History mcg (1,000 unit) capsule coenzyme Q10 100 mg capsule 100 mg PO HS 05/17/22 07/05/24 05/27/22 History (CoQ-10) cyanocobalamin (vitamin B-12) 1,000 mcg PO HS 05/17/22 07/05/24 05/27/22 History 1,000 mcg tablet fluorometholone 0.1 % eye 1 drp BID 05/17/22 07/05/24 05/30/22 History drops,suspension hydrochlorothiazide 25 mg tablet 25 mg HS 05/17/22 07/05/24 05/30/22 History irbesartan 300 mg tablet 300 mg HS 05/17/22 07/05/24 05/30/22 History simvastatin 20 mg tablet 20 mg HS 05/17/22 07/05/24 05/30/22 History timolol maleate 0.5 % eye drops 1 drp BID 05/17/22 07/05/24 05/30/22 History vit C 250 mg-vit E 90 mg-zinc 40 1 tablet PO HS 05/17/22 07/05/24 05/27/22 History mg-copper 1 [id number]-ubeier capsule (PreserVision AREDS-2) ketorolac 0.5 % eye drops drp 12/20/24 Unknown History Allergies Allergy/AdvReac Type Severity Reaction Status Date / Time Sulfa (Sulfonamide Allergy Unknown Rash Verified 12/20/24 13:07 Antibiotics) bacitracin (From Neosporin Allergy Rash Verified 12/20/24 13:07 ([id number])) neomycin (From Neosporin Allergy Rash Verified 12/20/24 13:07 ([id number])) polymyxin B (From Neosporin Allergy Rash Verified 12/20/24 13:07 (fiw-[id number])) Review of Systems Review of Systems: CONSTITUTIONAL: Denies body aches, fever, chills, or sweats. EYES: Denies visual changes, redness, or discharge. ENT: Denies rhinorrhea, congestion CARDIOVASCULAR: Denies chest pain, palpitations, or edema. RESPIRATORY: Denies cough or dyspnea. GASTROINTESTINAL: Denies abdominal pain, nausea, vomiting, or diarrhea. SKIN: Reports rash under left breast MUSCULOSKELETAL: Denies back pain, joint pain, or myalgia. NEUROLOGIC: Denies headache, numbness, tingling, or weakness. 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 History of left breast biopsy (03/22/00) Benign histology. 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 Social History Social History Social History: Surrogate medical decision maker: Drew Good, spouse. Code status: Full code. Smoking status: Never smoker Second hand tobacco smoke exposure: No Alcohol intake: current Drinks per week: 1 Substance use: never Substance use type: does not use Living arrangements: with family Occupation/Education: retired Spiritual care concerns: No Comments At time of signature, I have reviewed and agree with nursing past medical, surgical, social and family history unless otherwise noted. Please see nursing chart for further information. There is no relevant family history pertinent to the presenting complaint Exam Narrative: GENERAL: Well-appearing EYES: conjunctivae clear, and EOMI. ENT: Mucous membranes moist. Oropharynx without edema, erythema or lesions. NECK: Supple. No lymphadenopathy CHEST: Clear to auscultation. HEART: Regular rate and rhythm. SKIN: Warm, dry. Left breast fold with mild erythematous rash c/w mahsa. Mildly excoriated skin approx 2cm length medially. No drainage or vesicles. NEURO: Alert and oriented x3. Course Course Emergency Course: Patient is aware of diagnosis, understands and agrees to treatment plan. Anticipatory guidance given. Patient agrees to follow-up as directed and is aware of reasons to seek care at the emergency department. Portions of this record may have been created with voice recognition software Level of Care: Express Care Visit Vital Signs Vital signs: Vital Signs Temperature 97.3 F L 12/20/24 13:08 Pulse Rate 64 12/20/24 13:08 Respiratory Rate 18 12/20/24 13:08 Blood Pressure 149/70 H 12/20/24 13:08 Pulse Oximetry 97 12/20/24 13:08 Oxygen Delivery Room Air 12/20/24 13:08 Temperature 97.3 F L 12/20/24 13:08 Pulse Rate 64 12/20/24 13:08 Respiratory Rate 18 12/20/24 13:08 Blood Pressure 149/70 H 12/20/24 13:08 Pulse Oximetry 97 12/20/24 13:08 Oxygen Delivery Room Air 12/20/24 13:08 Reviewed MDM - Skin/Abscess/Foreign Bdy MDM Narrative Medical decision making narrative: Discussed physical exam findings c/w mahsa left breast. Advised supportive measures and signs/symptoms to go to the ER. Pt is appropriate for outpt treatment and f/u. Differential Diagnosis Differential diagnosis: Likely abscess of skin or subcutaneous tissue, viral exanthem, urticaria, herpes zoster, cellulitis, eczema, impetigo and contact dermatitis Discharge Plan Discharge Clinical Impression: Dermatitis Patient Disposition: Home, Self-Care Condition: Stable Instructions: Antibiotic Form, Skin Yeast Infection (ED) Additional Instructions: Wash the area with gentle soap and water only. Use skin cream as prescribed to reduce itchiness Avoid scratching when possible to prevent worsening of the condition and disruption of the skin that could lead to bacterial infection To relieve itching, place a cool washcloth or some ice over the area that itches, rather than scratching Follow up with primary care provider ER if rash worsens or you have chest pain, trouble breathing, become hoarse, or start wheezing, develop belly cramps, vomiting or feel dizzy. Patient Language: German Prescriptions: New nystatin 100,000 unit/gram cream 1 applic topical TID 14 Days Qty: 30 0RF No Action mupirocin 2 % ointment 1 applic topical BID Qty: 15 0RF ketorolac 0.5 % drops cyanocobalamin (vitamin B-12) 1,000 mcg Tablet 1,000 mcg PO HS simvastatin 20 mg tablet 20 mg HS fluorometholone 0.1 % drops,suspension 1 drp BID Patient Comments: EACH EYE hydrochlorothiazide 25 mg tablet 25 mg HS timolol maleate 0.5 % drops 1 drp BID Patient Comments: EACH EYE irbesartan 300 mg tablet 300 mg HS cholecalciferol (vitamin D3) 25 mcg (1,000 unit) Capsule 25 mcg PO HS coenzyme Q10 [CoQ-10] 100 mg Capsule 100 mg PO HS PreserVision AREDS-2 250-90-40-1 mg Capsule 1 tablet PO HS acetaminophen 500 mg Tablet 1,000 mg PO Q6HR Qty: 90 0RF Follow-up/Referrals: Toni,RODRIGO Tovar [Primary Care Provider] -
--- OUTSIDE RECORDS SUMMARY | 2024-12-20 13:21 | XMS_ITS | Data Portability ---
Author Organization [facility], Main Office Address [address] [place] [address] Care Team Providers Care Punch Operator Name Role Phone SUSAN CARRIZALES Primary Care Provider SUSAN CARRIZALES Referring Provider [phone] Assessment No assessment recorded. Plan of Treatment Reminders Order Date Submit Date Provider Last Modified By Organization Details Last Modified Time Details Appointments None recorded. Lab lipid panel, serum 2023 024 [email or web address] [facility] (Lab), [address] [place], [address], 4 08:22:44 CBC w/ auto diff 2023 024 [email or web address] [facility] (Lab), [address] [place], [address], 4 08:22:44 CK (creatine kinase), total, serum 2023 024 [email or web address] 2 [facility] (Lab), [address] [place], [address], 4 08:22:45 glycohemogl obin, total, blood 2023 024 [email or web address] [facility] (Lab), [address] [place], [address], 4 08:22:45 TSH, serum or plasma 2023 024 [email or web address] 2 [facility] (Lab), [address] [place], [address], 4 08:22:45 CMP, serum or plasma 2023 024 [email or web address] 2 [facility] (Lab), [address] [place], [address], 4 08:22:45 urinalysis, dipstick 2023 024 [facility] [address] [facility] [address], [place], [address], 4 09:23:32 culture, urine + sensitivity 2023 024 [facility] 200 [facility] (Lab), [address] [place], [address], 4 09:23:32 Referral None recorded. Procedures None recorded. Surgeries None recorded. Imaging None recorded. Medication Orders timolol maleate 0.5 % eye drops 2023 024 [facility] #[id number], [address], [id number], 4 13:00:09 Paxlovid 300 mg (150 mg x 2)-100 mg tablets in a dose pack 2023 024 [facility] #[id number], [address], [id number], 4 12:58:32 dexamethaso ne 6 mg tablet 2023 024 [facility] #63466, [address], [id number], 4 12:58:33 ciprofloxac in 500 mg tablet 2023 024 [email or web address] #15182, [address] [facility] [address] [place] [address], [id number], 14:21:58 timolol maleate 0.5 % eye drops 2023 024 [facility] #50831, [address] [facility] [address] [place] [address], [id number], 14:44:12 cyanocobala min (vit B-12) 1,000 mcg sublingual tablet 2023 [facility] #40410, [address], [id number], 14:49:34 Patient TargetsNo targets recorded. Patient Instructions Encounter Date Encounter Id Patient Instructions Last Modified By Organization Details Last Modified Time 05/15/2024 [id number] dementia rating scale-2* [email or web address] Not available 05/15/2024 14:27:05 Timed Up and Go test (TUG)* [email or web address] Not available 05/16/2024 08:51:59 alcohol misuse* [email or web address] Not availab le 05/15/2024 14:27:05 depression screening* [email or web address] Not available 05/15/2024 14:27:05 multi-dimensiona l health assessment questionnaire* [email or web address] Not available 05/15/2024 14:27:05 Personalized [facility] Plan and Screening Recommendations Advance Directives - Do you have one? No Advance Directives - Do we have your advance directive on file in your health record? Primary Prevention/Interven tion (prevents or decreases the chance of common diseases from occurring) Smoking Risk: Non Smoker Alcohol Misuse Screening: Negative Weight: Appropriate Overwei ght continue your current weight loss efforts try to lose 5% of your body weight try to lose 10% of your body weight Physical activity: Need more exercise/physical activity minimum of 10-20 minutes of activity that causes mild breathlessness/day minimum of 20-30 minutes activity that causes mild breathlessness/day Nutrition: Good Average Fall Risk (screened today): Low Intermediate Vaccines Pneumococcal: Ordered Recommended today Recommended today, but you have declined No further needed Influenza: Your next one in the fall of this year Chronic Disease Risks Stroke: Low Risk Intermediate Risk I have no recommendations Act mya diagnosis, Continue current treatment plan Heart Attack: Low risk Intermediate Risk I have no recommendations Act mya diagnosis, Continue current treatment plan Clogging of the Arteries: Low risk Intermediate Risk I have no recommendations Act mya diagnosis, Continue current treatment plan Diabetes: Low Risk I have no recommendations Secondary Prevention/Interven tion (detects treatable diseases before they may cause symptoms, disability, or ) Breast Cancer Screening with mammogram: No screening necessary Cervical/Uterine/Ov aung Cancer Screening: No screening necessary Osteoporosis Screening: No screening necessary Date Screening Last Performed: Colon Cancer Screening: No screening necessary Date Screening Last Performed: Eye Disease Screening: Dementia Risk: Low I have no recommendations Depression Screening: Negative Not available 05/15/2024 14:22:33 recheck BP at [facility] , she will call us if still high [email or web address] Not available 05/24/2024 14:58:30 Reason for Referral None Reported. Results Created Date Observation Date Name Description Value Unit Range Abnormal Flag Note LastModifiedBy Organization Detail LastModifiedTime 03/13/20 24 03/13/2024 urina lysis , dipst ick Leukocytes (reference range: negative frances/ l) Large Not Available [address], [place], [address], 03/13/2024 15:38:21 03/13/20 24 03/13/2024 urina lysis , dipst ick Nitrite (reference rage: negative mg/dl) negati ve Not Available [address] [place], [place], [address], 03/13/2024 15:38:21 03/13/20 24 03/13/2024 urina lysis , dipst ick Urobilinogen (reference range: 0.2-1 mg/dl) 1 Not Available [address] [place], [place], [address], 03/13/2024 15:38:21 03/13/20 24 03/13/2024 urina lysis , dipst ick Protein (reference range: negative mg/dl) Small Not Available [address] [place], [place], [address], 03/13/2024 15:38:21 03/13/20 24 03/13/2024 urina lysis , dipst ick pH (reference range: 5-7) 6.5 Not Available [address] [place], [place], [address], 03/13/2024 15:38:21 03/13/20 24 03/13/2024 urina lysis , dipst ick Blood (reference range: negative Anibal/ l) Large Not Available [address] [place], [place], [address], 03/13/2024 15:38:21 03/13/20 24 03/13/2024 urina lysis , dipst ick Specific [place] (reference range: 1.005-1.030) 1.020 Not Available [address] [place], [place], [address], 03/13/2024 15:38:21 03/13/20 24 03/13/2024 urina lysis , dipst ick Ketone (reference range: negative mg/dl) Negati ve Not Available [address] [place], [place], [address], 03/13/2024 15:38:21 03/13/20 24 03/13/2024 urina lysis , dipst ick Bilirubin (reference range: negative mg/dl) Negati ve Not Available [address] [place], [place], [address], 03/13/2024 15:38:21 03/13/20 24 03/13/2024 urina lysis , dipst ick Glucose (reference range: negative mg/dl) Negati ve Not Available [address] [place], [place], [address], 03/13/2024 15:38:21 03/13/20 24 03/13/2024 urina lysis , dipst ick Appearance Slight ly Cloudy Not Available [address] [place], [place], [address], 03/13/2024 15:38:21 03/13/20 24 03/13/2024 urina lysis , dipst ick Color Yellow Not Available [address] [place], [place], [address], 03/13/2024 15:38:21 02/09/20 24 11/09/2022 MRI, brain + brain stem, w/o contr ast No observ ation record ed. [email or web address] [facility] [address], [place], [address], 03/27/2024 11:00:42 Result Notes None recorded. Problems Name Problem SNOMED Code Status Onset Date Resolution Date Notes Provider Name and Address Organization Details Recorded Time Hyperbili rubinemia 66600537 Active Not Available [facility] 3 09:16:07 Hypomagne semia 550715168 Active Not Available [facility] 3 09:16:07 Abrasion of skin of knee 349359534 Active 2016 Not Available [facility] 3 09:16:07 Pain in right hip joint 55866221607 9102 Active 2021 Not Available [facility] 3 09:16:07 Osteoarth ritis of right hip joint 06650420327 9107 Active 2020 Not Available [facility] 3 09:16:07 Vitamin D deficienc y 40929561 Active Not Available [facility] 3 09:16:07 Arthritis 4983065 Active 2021 Not Available [facility] 3 09:16:07 Spider bite wound 998795217 Completed Not Available [facility] 3 09:16:08 Dysphagia 02264455 Active Not Available [facility] 3 09:16:08 Degenerat mya disorder of macula 230131433 Active 2016 Not Available [facility] 3 09:16:08 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 56975373405 4100 Active 2021 Not Available [facility] 3 09:16:08 Upper respirato ry infection 30087117 Completed Not Available [facility] 3 09:16:08 Hyperlipi demia 73901588 Active Not Available [facility] 3 09:16:08 Essential hypertens ion 82562244 Active Not Available [facility] 3 09:16:08 Malignant essential hypertens ion 03259258 Active Not Available [facility] 3 09:16:08 Hyperglyc emia 85422488 Active Not Available [facility] 3 09:16:08 Fatigue 31977097 Completed Not Available [facility] 3 09:16:08 Reactive depressio n (situatio nal) 87991230 Active Not Available [facility] 3 09:16:08 Iron deficienc y anemia 86809776 Active Not Available [facility] 3 09:16:08 Transient cerebral ischemia 061425567 Active 2022 SADIA Abernathy null, [facility] [employer] 3 12:26:11 Mitral valve regurgita tion 46298161 Active 2022 Michael Oliver MD [address] [place] [address], [place] [address], [place], [address] , [facility] [place] [employer] 3 16:17:30 Impairmen t of balance 872007735 Active 2022 Michael Oliver MD [address], [place], [address] , [facility] [employer] 3 14:13:51 Impaired fasting glycemia 415373926 Active 2022 Michael Oliver MD [address], [place], [address] , [employer] [facility] 3 14:22:20 Pre-surge ry evaluatio n Active 2022 RODRIGO Diaz [address], [place], [address] , [employer] [facility] 3 10:28:10 Hypercalc emia 16106863 Active 2023 RODRIGO Diaz [address], [address], [place], [address] , [employer] [facility] 4 14:04:30 Serum vitamin B12 below reference range 973371300 Active 2023 RODRIGO Diaz [address], [place], [address] , [employer] [facility] 4 14:48:28 Dysuria 56685516 Active 2023 Taylor Sotelo RN null, [place] [employer] [facility] [employer] 4 15:38:29 COVID-19 892044017 Active 2023 RODRIGO Diaz [address], [place], [address] , [facility] [employer] [facility] [employer] 4 12:57:32 Burn 802779704 Active 2023 RODRIGO Diaz [address], [place], [address] , [facility] [employer] [facility] [employer] 4 12:06:39 Problem Notes None recorded. Procedures Surgical History Date Name Laterality Status Provider Name and Address Organization Details Recorded Time 4 Medicare Wellness CPT Code, subsequent completed January GABBY Gonzales [facility] [employer] 05/15/2024 14:14:53 3 Hip surgery completed Taylor Sotelo RN [facility] [employer] [facility] 05/15/2024 14:21:15 Breast Surgery completed Not Available [facility] 12/01/2022 09:13:16 Cataract Surgery completed Not Available [facility] 12/01/2022 09:13:16 Imaging Results Imaging Date Name Status LastModified by Organiz ation Details LastModified Time 11/09/2022 MRI, brain + brain stem, w/o contrast completed [address] [facility] [address], [place], [address], 03/27/2024 11:00:42 Procedure Notes None recorded. Medical Equipment None Reported. Allergies Allergen ID Allergen Name Allergen Category Reaction Reaction Severity Criticality Documentation Date Start Date Code Code System Note Provider Name and Address Organization Details Recorded Time 40744 Substance with sulfonami de structure and antibacte rial mechanism of action (substanc e) medicatio n Not available Not available Not available 12/01/2022 04488 8003 SNOMED Not Available [facility] 3 09:20:26 41076 bacitraci n / neomycin / polymyxin B medicatio n Not available Not available Not available 12/01/2022 14969 9 RxNorm Not Available [facility] 3 09:20:26 Medications Name Sig Start Date Stop Date Status Note LastModified by Organization Details LastModified Time doxycyclin e hyclate 100 mg capsule TAKE 1 CAPSULE BY MOUTH TWICE DAILY FOR 7 DAYS active Not Available Not Available No t Available azithromyc in 250 mg tablet TAKE 2 TABLETS (500 MG) BY ORAL ROUTE ONCE DAILY FOR 1 DAY THEN 1 TABLET (250 MG) BY ORAL ROUTE ONCE DAILY FOR 4 DAYS 06/22 completed Not Available Not Available Not Available ofloxacin 0.3 % eye drops INSTILL 1 DROP INTO RIGHT EYE THREE TIMES DAILY DIRECTED FOR 3 WEEKS 02/04 completed Not Available Not Available Not Available prednisone 20 mg tablet active Not Available Not Available Not Available dexamethas one 6 mg tablet TAKE 1 TABLET BY MOUTH EVERY DAY FOR 7 DAYS active Not Available Not Available No t Available ciprofloxa kari 500 mg tablet TAKE 1 TABLET BY MOUTH EVERY 12 HOURS FOR 10 DAYS 05/15 completed Not Available Not Available Not Available aspirin 81 mg tablet,del ayed release Take 1 tablet every day by oral route as directed . 10/13 completed Not Available Not Available Not Available triamcinol one acetonide 0.1 % topical cream Apply 1 applicat ion twice a day by topical route for 30 days. active Not Available Not Available No t Available amoxicilli n 500 mg tablet TAKE FOUR TS PO 1 HOUR B DAPP 06/01 completed Not Available Not Available Not Available ketorolac 0.5 % eye drops INSTILL 1 DROP IN LEFT EYE FOUR TIMES DAILY 06/01 completed Not Available Not Available Not Available Kenalog 40 mg/mL suspension for injection 09/03 completed Not Available Not Available Not Available meloxicam 7.5 mg tablet Take 1 tablet every day by oral route. active Not Available Not Available No t Available prednisolo ne acetate 1 % eye drops,susp ension SHAKE LIQUID AND INSTILL 1 DROP IN LEFT EYE FOUR TIMES DAILY 06/01 completed Not Available Not Available Not Available cephalexin 500 mg capsule TAKE 1 CAPSULE BY MOUTH TWICE DAILY FOR 7 DAYS 07/15 completed Not Available Not Available Not Available simvastati n 20 mg tablet TAKE 1 TABLET BY MOUTH EVERY DAY active Not Available Not Available No t Available erythromyc in 5 mg/gram (0.5 %) eye ointment APPLY A THIN LAYER INTO RIGHT EYE AT BEDTIME DIRECTED 02/04 completed Not Available Not Available Not Available neomycin-p olymyxin-d exameth 3.5 mg/mL-10,0 00 unit/mL-0. 1% eye drops SHAKE LIQUID AND INSTILL 1 DROP IN BOTH EYES TWICE DAILY FOR 2 WEEKS 05/03 completed Not Available Not Available Not Available fluorometh olone 0.1 % eye drops,susp ension SHAKE LIQUID AND INSTILL 1 DROP IN BOTH EYES TWICE DAILY FOR 2 WEEKS 12/05 completed Not Available Not Available Not Available brimonidin e 0.2 % eye drops INSTILL 1 DROP INTO RIGHT EYE TWICE DAILY DIRECTED 02/04 completed Not Available Not Available Not Available cyanocobal truong (vit B-12) 1,[address] 1 tablet twice a day by sublingu al route for 30 days. 2023 active Not Available Not Available Not Avai lable hydrochlor othiazide 25 mg tablet TAKE 1 TABLET BY MOUTH EVERY DAY active Not Available Not Available No t Available mupirocin 2 % topical ointment APPLY A SMALL AMOUNT TO THE AFFECTED AREA BY TOPICAL ROUTE 3 TIMES PER DAY 2023 active Not Available Not Available Not Avai lable nystatin 100,000 unit/gram topical powder APPLY TO THE AFFECTED AREA(S) BY TOPICAL ROUTE 2 TIMES PER DAY active Not Available Not Available No t Available methylpred nisolone 4 mg tablets in a dose pack Use as directed 06/22 completed Not Available Not Available Not Available Vitamin D2 1,250 mcg (50,000 unit) capsule Take 1 capsule every week by oral route. active Not Available Not Available No t Available timolol maleate 0.5 % eye drops INSTILL 1 DROP IN BOTH EYES TWICE DAILY active Not Available Not Available No t Available ketoconazo le 2 % topical cream APPLY TO THE AFFECTED AREA(S) BY TOPICAL ROUTE ONCE DAILY FOR 2 WEEKS active Not Available Not Available No t Available irbesartan 300 mg tablet TAKE 1 TABLET BY MOUTH EVERY DAY active Not Available Not Available No t Available amoxicilli n 875 mg-potassi um clavulanat e 125 mg tablet TAKE 1 TABLET BY MOUTH EVERY 12 HOURS FOR 7 DAYS active Not Available Not Available No t Available oxycodone 5 mg tablet Take 1 tablet every 4 hours by oral route. 06/30 completed Not Available Not Available Not Available neomycin 3.5 mg/g-polym yxin B 10,000 unit/g-dex ameth 0.1 % eye oint 05/03 completed Not Available Not Available Not Available escitalopr am 10 mg tablet Take 1 tablet every day by oral route. 03/04 completed pt states she never had this filled Not Available Not Available Not Available Vigamox 0.5 % eye drops 09/03 completed Not Available Not Available Not Available Durezol 0.05 % eye drops Instill by ophthalm ic route for 37 days. 09/03 completed Not Available Not Available Not Available Vitamin D3 50 mcg (2,000 unit) capsule Take 1 capsule every day by oral route. 10/13 completed Not Available Not Available Not Available Ilevro 0.3 % eye drops,susp ension 09/03 completed Not Available Not Available Not Available Eliquis 2.5 mg tablet TAKE 1 TABLET BY MOUTH EVERY 12 HOURS 07/28 completed Not Available Not Available Not Available BinaxNOW COVID-19 Ag Self Test kit TEST DIRECTED TODAY 08/19 completed Not Available Not Available Not Available Paxlovid 300 mg (150 mg x 2)-100 mg tablets in a dose pack TK 2 NIRMATRE LVIR TS AND 1 RITONAVI R T TOGETHER PO BID FOR 5 DAYS active Not Available Not Available No t Available Vitals Date Recorded Body height Body mass index (BMI) Body weight Body temperature Heart rate Oxygen saturation Oxygen saturation in Arterial blood by Pulse oximetry Respiratory rate Systolic blood pressure Diastolic blood pressure Provider Name and Address Organization Details Last Updated DateTime 4 160.02 cm 29.8 kg/m2 48504.5 2 g 97.4 [degF] 56 /min 98 % 98 % 16 /min 120 mm[Hg] 68 mm[Hg] Virginia Morrell RN [facility] [employer] [facility] 4 14:22:12 Date Recorded Body height Body mass index (BMI) Body weight Body temperature Heart rate Respiratory rate Oxygen saturation Oxygen saturation in Arterial blood by Pulse oximetry Systolic blood pressure Diastolic blood pressure Systolic blood pressure Diastolic blood pressure Provider Name and Address Organization Details Last Updated DateTime 4 160.02 cm 29.8 kg/m2 97948.5 2 g 98.2 [degF] 48 /min 16 /min 98 % 98 % 176 mm[Hg] 90 mm[Hg] 154 mm[Hg] 92 mm[Hg] Taylor Sotelo RN [facility] at work [facility] 4 15:07:48 Date Recorded Body height Systolic blood pressure Diastolic blood pressure Provider Name and Address Organization Details Last Updated DateTime 06/06/2024 160.02 cm 186 mm[Hg] 72 mm[Hg] Una Barr RN [facility] at work [facility] 06/06/2024 15:39:21 Date Recorded Body height Body mass index (BMI) Body weight Body temperature Heart rate Oxygen saturation Oxygen saturation in Arterial blood by Pulse oximetry Respiratory rate Systolic blood pressure Diastolic blood pressure Provider Name and Address Organization Details Last Updated DateTime 4 160.02 cm 30.5 kg/m2 26506.8 9 g 98 [degF] 50 /min 96 % 96 % 16 /min 158 mm[Hg] 68 mm[Hg] Taylor Sotelo RN [place] [facility] [employer] [facility] 4 12:46:24 Social History Question Answer Notes LastModified by [employer] [facility] [employer] [facility] Details LastModified Time Tobacco Smoking Status Former Smoker Not Available [employer] 12/01/2022 09:13:00 What Is Your Level Of Alcohol Consumption? Occasional [id number] Information not available 12/01/2022 What Is Your Level Of Caffeine Consumption? Moderate [id number] Information not available 12/01/2022 How Much Tobacco Do You Chew? None [id number] Information not available 12/01/2022 Which Illicit Or Recreational Drugs Have You Used? None [id number] Information not available 12/01/2022 Do You Or Have You Ever Used E-cigarettes Or Vape? 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 05/15/2024 Information not available 05/15/2024 Do You Or Have You Ever Used Smokeless Tobacco? Never Used Smokeless Tobacco [id number] Information not available 12/01/2022 Sex: Unknown Functional Status Question Answer Note LastModified by [employer] Details LastModified Time What is your exercise level? Occasional [id number] Information not available 12/01/2022 Mental Status None recorded. Family History Relationship Description Onset Age of this Age Resolved Age Notes LastModified by Organization Details LastModified Time Father Hypertensive disorder [id number] Not available 12/01/2022 09:13:16 Father Parkinson's disease [id number] Not available 12/01/2022 09:13:16 Mother Hypertensive disorder [id number] Not available 12/01/2022 09:13:16 Mother Hypercholest erolemia [id number] Not available 12/01/2022 09:13:16 Unspecified Relation Malignant tumor of colon [place] [id number] Not available 12/01/2022 09:13:16 Medical History Condition Response BLINDNESS N KIDNEY STONES N MRSA N CARPAL TUNNEL SYNDROME N LUNG DISEASE/DISORDER N HISTORY OF DRUG ABUSE N COPD N RADIATION / CHEMOTHERAPY N SPORTS INJURY N ANKLE PAIN N BLOOD DISEASES N SCHIZOPHRENIA N SHINGLES N BOWEL PROBLEMS N SHOULDER PAIN N DEPRESSION (INCLUDING POST ) N STROKE/TIA N ULCERS N KNEE PAIN N BENIGN PROSTATIC HYPERPLASIA N OBESITY N GERD/NAUSEA N ANEURYSM N URINARY/BLADDER/KIDNEY PROBLEMS N CORONARY ARTERY DISEASE (CAD) N ADDICTION CONCERNS N USE OF BLOOD THINNERS N SKIN PROBLEMS N EMPHYSEMA N MUSCLE,JOINT OR BONE PROBLEMS N DVT N STOMACH ULCERS N BLOOD CLOTS N USE OF NSAIDS N CONCUSSION OR SPINAL TRAUMA N NEUROPATHY N AIDS/HIV N FRACTURES N ELBOW PAIN N HYPERTENSION N TOURETTE'S N ANXIETY DISORDER N Metal allergy N BLOOD TRANSFUSION N ANEMIA/BLOOD DISORDER N BIPOLAR DISORDER N BRONCHITIS N OSTEOARTHRITIS N TUBERCULOSIS N FOOT PROBLEM N HEART VALVE DISORDERS N SOFT TISSUE INJURY N ALLERGIES/HAYFEVER N INFECTIOUS DISEASE N HEART ARRHYTHMIA N INSOMNIA N HIGH CHOLESTEROL / HYPERLIPIDEMIA N RHEUMATOID ARTHRITIS N EDEMA N CHRONIC PAIN SYNDROME N CAROTID BLOCKAGE N BACK / NECK PROBLEMS N HAVE YOU BEEN HOSPITALIZED OR SEEN IN [facility] ER IN THE PAST YEAR ? N BURSITIS N HERNIATED DISC N DIALYSIS N FIBROMYALGIA N OSTEOPOROSIS N ARTHRITIS Y NO SIGNIFICANT PAST MEDICAL HISTORY N PERIPHERAL NEUROPATHY N DIABETES, TYPE Y HEARTBURN / REFLUX N HEPATITIS / LIVER DISEASE N GOUT N ALZHEIMER'S DISEASE N SLEEP DISORDER N HERPES N HEADACHES/MIGRAINES N SEIZURES/EPILEPSY N VASCULAR DISEASE N Blood Disorder N HIP PAIN N DIZZINESS N HEAD TRAUMA OR INJURY N HEART DISEASE/HEART PROBLEMS N KIDNEY DISEASE Y MULTIPLE SCLEROSIS N CARDIAC ARRHYTHMIA N CANCER: SPECIFY N ANESTHESIA COMPLICATIONS N ATRIAL FIBRILLATION N AUTOIMMUNE DISEASE N Gynecological HistoryNo gynecological history recorded. Obstetrics History GPAL:G 0 P 0 0 0 0 Immunizations Vaccine Type Date Status Note Provider Henrry bedoya and Address Organization Details Recorded Time COVID-19, mRNA, LNP-S, PF, 50 mcg/0.5 mL 3 completed EBEN Geller, [place] [facility] 08/19/2023 09:41:56 RSV, recombinant, protein subunit RSVpreF, adjuvant reconstituted, 0.5 mL, PF 3 completed EBEN Geller, [facility] 08/19/2023 10:05:48 COVID-19, mRNA, LNP-S, PF, shiloh-sucrose, 30 mcg/0.3 mL 4 completed Jenn Lawler null, [facility] 06/11/2024 14:08:50 Influenza, split virus, quadrivalent, preservative 0 completed Yazmin Cortez CMA null, [facility] 07/19/2023 14:03:47 Influenza, split virus, quadrivalent, preservative 0 completed Yazmin Cortez CMA null, [facility] 07/19/2023 14:03:47 Pneumococcal conjugate PCV 13 0 completed Yazmin Cortez CMA null, [facility] 07/19/2023 14:03:47 pneumococcal polysaccharide PPV23 7 completed Not Available [facility] 12/01/2022 09:20:22 Influenza, high-dose, quadrivalent, PF 1 completed Not Available [facility] 12/01/2022 09:20:22 Influenza, high-dose, quadrivalent, PF 0 completed Not Available [facility] 12/01/2022 09:20:22 Influenza, high-dose, trivalent, PF 0 completed Not Available [facility] 12/01/2022 09:20:22 Past Encounters Encounter ID Performer Location Encounter Start Date Encounter Closed Date Diagnosis/Indication Diagnosis SNOMED-CT Code Diagnosis ICD10 Code Diagnosis Note [id number] [facility] Lisa melgoza [address] [place] [address] 02/04/2021 00:00:00 02/04/2021 16:05:32 [id number] [facility] Primary Care Kyle melgoza [address] [facility] [address] [place] [address] 09/01/2021 00:00:00 09/01/2021 13:13:46 [id number] [facility] Lisa melgoza [address] [place] [address] 09/16/2021 00:00:00 09/17/2021 10:28:51 [id number] [facility] [address] [place] [address] 10/30/2021 00:00:00 10/30/2021 10:42:32 [id number] [facility] [address] [place] [address] 11/27/2021 00:00:00 11/27/2021 11:10:19 [id number] [facility] Fabian abad [address] [place] [address] 01/06/2022 00:00:00 01/06/2022 10:49:43 [id number] [facility] [address] [place] [address] 02/19/2022 00:00:00 02/21/2022 19:46:28 [id number] [facility] Fabian abad [address] [place] [address] 05/03/2022 00:00:00 05/03/2022 15:06:22 [id number] [facility] [address] [facility] [address] [facility] [place] [address] 05/07/2022 00:00:00 05/07/2022 15:47:30 [id number] [facility] [address] [place] [address] 06/11/2022 00:00:00 06/11/2022 10:09:41 [id number] [facility] [address] [place] [address] 06/30/2022 00:00:00 07/04/2022 07:15:21 [id number] [facility] [address] [place] [address] 07/28/2022 00:00:00 07/28/2022 12:36:13 [id number] [facility] [place] [address] [place] [address] [place] [address] 08/19/2022 00:00:00 08/19/2022 11:15:30 [id number] Michael Oliver MD [facility] [place] [address] [place] [address] [place] [address] 01/18/2023 15:54:43 01/18/2023 16:53:22 Mitral valve regurgitation 27758489 I34.0 [id number] Kevin Melara MD [facility] [address] [place] [address] 06/01/2023 10:18:03 06/08/2023 09:10:31 History of total replacement of right hip joint 6261271869 20012 Z96.879 [id number] Michael Oliver MD [facility] [place] [address] [place] [address] [place] [address] 07/19/2023 13:48:11 07/19/2023 14:27:38 Impairment of balance 855268304 R26.89 Going to PT. Essential hypertension 63296837 I10 Continue BP meds. Hyperlipidemia 37371916 E78.5 Immunization due 8964462 08 Z28.39 Impaired f asting glycemia 385904199 R73.01 [id number] RODRIGO Diaz [facility] [place] [address] [place] [address] [place] [address] 09/27/2023 10:06:11 09/27/2023 10:27:58 Pre-surgery evaluation 745436950 Z01.290 [id number] RODRIGO Diaz [facility] [place] [address] [place] [address] [place] [address] 12/06/2023 14:09:38 12/06/2023 14:52:46 Hyperlipidemia 07943525 E78.5 Vitamin D deficiency 347 34443 E55.9 Osteoarthr itis of right hip joint 3160793483 40984 M16.11 Iron defic iency anemia 57373142 D50.9 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 Serum naveen min B12 below reference range 419647565 R79.89 Arthritis 9139988 M13.85 1 Essential hypertension 67297049 I10 Hypomagnesemia 045219526 E83.42 Impaired f asting glycemia 684255882 R73.01 [id number] RODRIGO Diaz [facility] [place] [address] [facility] [place] [address] 03/13/2024 15:24:56 03/30/2024 16:08:38 Dysuria 51565677 R30.0 [id number] RODRIGO Diaz [facility] [place] [address] [place] [address] 05/15/2024 13:52:05 05/15/2024 14:39:13 Adult health examination 868075758 Z00.00 Screening for disorder 903536665 Z13.9 Essential hypertension 47194402 I10 Hyperlipidemia 54404934 E78.5 Arthritis 0488491 M13.85 1 Degenerati ve disorder of macula 950259767 H35.30 Iron defic iency anemia 61014085 D50.9 Mitral yesika ve regurgitation 64743257 I34.0 Serum naveen min B12 below reference range 203162553 R79.89 Vitamin D deficiency 347 53803 E55.9 [id number] RODRIGO Diaz [facility] [place] [address] [place] [address] 06/06/2024 15:26:33 06/12/2024 04:04:03 [id number] RODRIGO Diaz [facility] [place] [address] [place] [address] 06/13/2024 12:18:08 06/13/2024 13:02:38 COVID-19 550207213 U07.1 Degenerati ve disorder of macula 494750557 H35.30 Arthritis 9864813 M13.85 1 Essential hypertension 17392169 I10 Hyperlipidemia 33221376 E78.5 Hypomagnesemia 782177678 E83.42 Iron defic iency anemia 29809130 D50.9 Mitral yesika ve regurgitation 26342817 I34.0 Osteoarthr itis of right hip joint 4252741569 09016 M16.11 Serum naveen min B12 below reference range 319072012 R79.89 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 Vitamin D deficiency 347 33929 E55.9 Health Concerns Section Related Observation LastModified by Organization Detai ls LastModified Time None Recorded Concern Status LastModified by Organization Details LastModified Time None Recorded Advance Directives Directive None Recorded Payers Encounter Date Sequence Insurance Name Policy Number Policy Wisdom Covered Member ID Wisdom Member ID Guarantor Name 12/06/2023 1 [place] Donna K Krumm [id number] Donna K Krumm 12/06/2023 2 [employer] [place] - PLAN G (MEDICARE SUPPLEMENT) Donna K Krumm [id number] Donna Clotilde Krumm 03/13/2024 1 [place] Donna K Krumm [id number] Donna K Krumm 03/13/2024 2 [employer] [employer] [place] PLAN G (MEDICARE SUPPLEMENT) Donna K Krumm [id number] Donna K Krumm 05/15/2024 1 [place] Donna K Krumm [id number] Donna K Krumm 05/15/2024 2 [employer] [place] [employer] [place] PLAN G (MEDICARE SUPPLEMENT) Donna K Krumm [id number] Donna K Krumm 06/06/2024 1 [place] Donna K Krumm [id number] Donna K Krumm 06/06/2024 2 [employer] [place] [employer] [place] (MEDICARE SUPPLEMENT) Donna K Krumm [id number] Donna Good 06/13/2024 1 [place] Donna Good [id number] Donna Good 06/13/2024 2 [employer] [employer] [place] PLAN G (MEDICARE SUPPLEMENT) Donna Good [id number] Donna Good Notes Date Note Type Note Provider Name and Address Organization Details Recorded Time 12/06/2023 text/html no changes RODRIGO Diaz [address], [place], [address], [employer] 12/11/2023 16:43:55 05/15/2024 text/html surgery on right hip in 2022.. no calf cramps , has Covid , she has tested neg twice . yesterday included , no symptoms RODRIGO Diaz [address], [place], [address], [employer] 05/24/2024 15:00:12 06/13/2024 text/html fell back hit head , no loc RODRIGO Diaz [address], [place], [address], [employer] 06/30/2024 16:56:05 OBGyn Episode No OBEpisode recorded.
--- OUTSIDE RECORDS SUMMARY | 2024-12-20 13:21 | XMS_ITS | Continuity of Care Document ---
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 Role Phone Jim Truong Unavailable Unavailable Procedures Procedure Date Office/outpatient Visit, Est Eye Exam & Treatment Refraction Office/outpatient Visit, Est Fundus Photography W/ Report Advance Directives Directive Yes / No Effective Date File Name No Information Encounters Encounter Description Practice Location Reason(s) For Visit Diagnoses Date Provider Providers Copied on Encounter Office/outpat ient Visit, [facility], [address] [place] [address] [address], [place], [place], [address], tel:[phone] [facility] No Information 2-201 0 Krishnasamy Jim. [address], [facility], [place]. tel:[phone] [facility], [address] [place] [address] [address], [place], [place], [address], [place] tel:[phone] [facility] No Information 7-200 9 Krishnasamy Jim. [address] [facility], [place], [place], [facility], [place]. tel:[phone] Office/outpat ient Visit, [facility], [address] [place] [address] [address], [place], [place], [address], [place] tel:[phone] [facility] No Information 9-200 7 Felisha Le. [address], [place], [address], . tel:[phone] Referring Provider: Rey Felisha Waldron, [address] [facility] [[email or web address]] [place], [place], [address] . tel:[phone] Family History Family Member Type Diagnosis Age At Onset No Information Payers Payer name Insurance type Covered alliance party ID Authoriza tion(s) [place] [id number] [facility] [id number] Social History Type Description Quantity Date Captured [...]
== END 2024-12-20 13:44 | disposition home or self-care (01) ==
PROVIDERS: Emergency Provider Nurse Practitioner Family; PCP Physician Assistant Medical
DX: L30.9 Dermatitis, unspecified (principal); I10 Essential (primary) hypertension
CPT/HCPCS: 99213; G0463

== ENCOUNTER 2025-01-28 16:16 | Emergency (ER) | payer MEDICARE, OTHER, SELFPAY ==
[2025-01-28 16:27] VITALS: BP 179/61; PULSE 73; RESP 20; TEMP 36.7; O2SAT 97
--- NOTE | 2025-01-28 16:35 | ED_ITS ---
HPI - URI/Sore Throat General Chief Complaint: Upper Respiratory Infection Stated Complaint: cough / congestion Time Seen by Provider: 01/28/25 16:35 Source: patient Mode of arrival: ambulatory Limitations: no limitations History of Present Illness HPI Narrative: 84 yo F presents with cough, chest congestion, fatigue, nasal coingestion and drainage for 5 days. Reports sputum is now yellow and concerned she has in fection. Recently on cruise ship and then traveled around [place]. No CP or SOB. All systems reviewed and negative except as noted above. Related Data Home Medications ?Medication ?Instructions ?Recorded ?Confirmed ?Last Taken ?Type cholecalciferol (vitamin D3) 25 25 mcg PO HS 05/17/22 07/05/24 05/27/22 History mcg (1,000 unit) capsule coenzyme Q10 100 mg capsule 100 mg PO HS 05/17/22 07/05/24 05/27/22 History (CoQ-10) cyanocobalamin (vitamin B-12) 1,000 mcg PO HS 05/17/22 07/05/24 05/27/22 History 1,000 mcg tablet fluorometholone 0.1 % eye 1 drp BID 05/17/22 07/05/24 05/30/22 History drops,suspension hydrochlorothiazide 25 mg tablet 25 mg HS 05/17/22 07/05/24 05/30/22 History irbesartan 300 mg tablet 300 mg HS 05/17/22 07/05/24 05/30/22 History simvastatin 20 mg tablet 20 mg HS 05/17/22 07/05/24 05/30/22 History timolol maleate 0.5 % eye drops 1 drp BID 05/17/22 07/05/24 05/30/22 History vit C 250 mg-vit E 90 mg-zinc 40 1 tablet PO HS 05/17/22 07/05/24 05/27/22 History mg-copper 1 [id number] capsule (PreserVision AREDS-2) ketorolac 0.5 % eye drops drp 12/20/24 Unknown History Allergies Allergy/AdvReac Type Severity Reaction Status Date / Time Sulfa (Sulfonamide Allergy Unknown Rash Verified 01/28/25 16:19 Antibiotics) bacitracin (From Neosporin Allergy Rash Verified 01/28/25 16:19 ([id number])) neomycin (From Neosporin Allergy Rash Verified 01/28/25 16:19 ([id number])) polymyxin B (From Neosporin Allergy Rash Verified 01/28/25 16:19 ([id number])) Review of Systems Review of Systems: CONSTITUTIONAL: Denies fever, chills, or sweats. reports fatigue. EYES: Denies visual changes, redness, or discharge. ENT: Reports rhinorrhea, congestion. Denies sore throat, or otalgia. CARDIOVASCULAR: Denies chest pain, palpitations, or edema. RESPIRATORY: Reports cough. Denies dyspnea. GASTROINTESTINAL: Denies abdominal pain, nausea, vomiting, or diarrhea. GENITOURINARY: Denies dysuria or hematuria. SKIN: Denies rash or itching. MUSCULOSKELETAL: Denies back pain, joint pain, or myalgia. NEUROLOGIC: Denies headache, numbness, or weakness. PSYCHIATRIC: Denies anxiety or depression. All other systems reviewed are negative, except as documented in HPI. 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 History of left breast biopsy (03/22/00) Benign histology. 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 Social History Social History Social History: Surrogate medical decision maker: Drew Good, spouse. Code status: Full code. Smoking status: Never smoker Second hand tobacco smoke exposure: No Alcohol intake: current Drinks per week: 1 Substance use: never Substance use type: does not use Living arrangements: with family Occupation/Education: retired Spiritual care concerns: No Comments At time of signature, agree with nursing past medical, surgical, social and family history. There is no relevant family history pertinent to the presenting complaint. Exam Narrative: GENERAL: This is a well-nourished, well-developed patient, in no apparent distress. HEAD: normocephalic, atraumatic. EYES: PERRL. Sclera clear/white. Vision is grossly intact. EARS: External ears normal, auditory canals clear and without drainage, TMs normal without perforation. Hearing grossly intact. NOSE: External nose normal with clear nasal drainage THROAT: Mucous membranes moist, mild erythema to posterior pharynx with postnasal drainage. No significant swelling or exudates NECK: Neck supple, non-tender without lymphadenopathy, masses or thyromegaly. CARDIOVASCULAR: Regular rate and rhythm without murmurs, gallops, or rubs. RESPIRATORY: Clear to auscultation. Breath sounds equal bilaterally. No wheezes, rales, or rhonchi. SKIN: warm, Dry, intact with no suspicious lesions or rash, good texture and turgor. NEURO: awake, alert, and oriented to person, place and time. There were no obvious focal neurologic abnormalities. EXTREMITIES: No joint tenderness, effusion, or edema noted. Course Course Level of Care: Express Care Visit Vital Signs Vital signs: Vital Signs Temperature 36.7 C 01/28/25 16:27 Pulse Rate 73 01/28/25 16:27 Respiratory Rate 20 01/28/25 16:27 Blood Pressure 179/61 H 01/28/25 16:27 Pulse Oximetry 97 01/28/25 16:27 Oxygen Delivery Room Air 01/28/25 16:27 Temperature 36.7 C 01/28/25 16:27 Pulse Rate 73 01/28/25 16:27 Respiratory Rate 20 01/28/25 16:27 Blood Pressure 179/61 H 01/28/25 16:27 Pulse Oximetry 97 01/28/25 16:27 Oxygen Delivery Room Air 01/28/25 16:27 reviewed MDM - URI/Sore Throat MDM Narrative Medical decision making narrative: Negative COVID and influenza testing. Patient reports recent exposure to her who was diagnosed with bronchitis, states he was given antibiotic. Patient requesting an antibiotic. Due to patient's comorbidity and age will prescribe doxycycline today. She is well-appearing, nontoxic. Please be advised this is a medical document. It is intended for cnti-ii-hvoy communication. It is written in medical language and may contain unfamiliar abbreviations or verbiage. Medical documents are intended to carry relevant information, facts as evident, and the clinical opinion of the practitioner at the time of the encounter. This report may have been done utilizing a voice recognition system. Attempts have been made to correct errors. However, there may be uncorrected grammatical, spelling, and recognition errors present. The file time of this note does not necessarily represent the time of service. Differential Diagnosis Differential diagnosis: Likely upper respiratory infection, sinusitis, viral infection and bronchitis Discharge Plan Discharge Clinical Impression: Acute bronchitis Qualifiers: Bronchitis organism: unspecified organism Qualified Code(s): J20.9 - Acute bronchitis, unspecified Patient Disposition: Home Condition: Stable Instructions: Antibiotic Form, Acute Bronchitis (ED) Additional Instructions: Your covid and influenza test was negative today. Take medications as prescribed. Drink plenty of water and rest. See your primary care physician if symptoms are not improving. If you have chest pain or shortness of breath go to the ER. Patient Language: Kiswahili Prescriptions: New doxycycline hyclate 100 mg capsule 100 mg PO BID 7 Days Qty: 14 0RF benzonatate 200 mg capsule 200 mg PO TID PRN (Reason: cough) Qty: 20 0RF methylprednisolone [Medrol (Nima)] 4 mg tablets,dose pack See Rx Instructions PO .COMPLEX Qty: 21 0RF Rx Instructions: orally per package directions No Action mupirocin 2 % ointment 1 applic topical BID Qty: 15 0RF ketorolac 0.5 % drops nystatin 100,000 unit/gram cream 1 applic topical TID 14 Days Qty: 30 0RF cyanocobalamin (vitamin B-12) 1,000 mcg Tablet 1,000 mcg PO HS simvastatin 20 mg tablet 20 mg HS fluorometholone 0.1 % drops,suspension 1 drp BID Patient Comments: EACH EYE hydrochlorothiazide 25 mg tablet 25 mg HS timolol maleate 0.5 % drops 1 drp BID Patient Comments: EACH EYE irbesartan 300 mg tablet 300 mg HS cholecalciferol (vitamin D3) 25 mcg (1,000 unit) Capsule 25 mcg PO HS coenzyme Q10 [CoQ-10] 100 mg Capsule 100 mg PO HS PreserVision AREDS-2 250-90-40-1 mg Capsule 1 tablet PO HS acetaminophen 500 mg Tablet 1,000 mg PO Q6HR Qty: 90 0RF Follow-up/Referrals: Toni,RODRIGO Tovar [Primary Care Provider] - Time of Disposition: 16:53
[2025-01-28 16:58] LABS: EDCOVIDSCREEN Negative (Negative); EDINFLUASCREEN Negative (Negative); EDINFLUBSCREEN Negative (Negative)
--- OUTSIDE RECORDS SUMMARY | 2025-01-28 18:13 | XMS_ITS | Continuity of Care Document ---
Author Organization [facility] Address [address] [place] [address] [place] [address] Phone Care Team Providers Care Operations Lead Name Role Phone Jim Truong Unavailable Unavailable Procedures Procedure Date Office/outpatient Visit, Est Eye Exam & Treatment Refraction Office/outpatient Visit, Est Fundus Photography W/ Report Advance Directives Directive Yes / No Effective Date File Name No Information Encounters Encounter Description Practice Location Reason(s) For Visit Diagnoses Date Provider Providers Copied on Encounter Office/outpat ient Visit, [facility] [place], [address] [place] [address] [address], [place], [place], [id number], tel:[phone] [facility] No Information 2-201 0 Krishnasamy Jim. [address], [facility], [place]. tel:[phone] [facility], [address] [place] [address] [address], [place], [place], [id number], [place] tel:[phone] [facility] No Information 7-200 9 Krishnasamy Jim. 2421 [facility] [address], [place], [place], [facility], [place]. tel:[phone] Office/outpat ient Visit, [facility] [place], [address] [place] [address] [address], [place], [place], [id number], [place] tel:[phone] [facility] No Information 9-200 7 Felisha Le. [address] [place], [id number], . tel:[phone] Referring Provider: Rey Felisha Waldron, [address] [facility], [place], [address] . tel:[phone] Family History Family Member Type Diagnosis Age At Onset No Information Payers Payer name Insurance type Covered alliance party ID Authoriza tion(s) [place] [id number] [id number] Social History Type Description Quantity Date Captured [...]
--- OUTSIDE RECORDS SUMMARY | 2025-01-28 18:13 | XMS_ITS | Clinical Summary ---
Author Organization [facility] Address [address] [place] [address] Care Team Providers Care Parimutuel Ticket Seller Name Role Phone Joseluis Petty MD Primary Care Provider [phone] Allergies Active Allergy Reactions Criticality Noted Date [...] 2024 08/17/2023, 06/07/2023, 07/10/2022, Additional history exists Pneumococcal Vaccine: 50+ Years Completed 10/15/2019, 10/09/2006 RSV Immunization or 60+ Years Completed 08/17/2023 Meningococcal B Vaccine Aged Out No l onger eligible based on patient's age to complete this topic Meningococcal Vaccine Aged Out No isaiah saundra eligible based on patient's age to complete this topic RSV Immunizations Under 20 Months Aged Out No longer eligible based on patient's age to complete this topic Insurance [facility] MEDICARE Care Teams Parimutuel Ticket Seller Relationship Specialty Start Date End Date Joseluis Petty MD [address] [place] [phone] PCP - General INTERNAL MEDICINE 05/19/24
--- OUTSIDE RECORDS SUMMARY | 2025-01-28 18:13 | XMS_ITS | Data Portability ---
Author Organization [facility] [employer], Main Office Address [address] [place] [address] Care Team Providers Care Rug Touch Up Painter Name Role Phone SUSAN CARRIZALES Primary Care Provider SUSAN CARRIZALES Referring Provider [phone] Assessment No assessment recorded. Plan of Treatment Reminders Order Date Submit Date Provider Last Modified By Organization Details Last Modified Time Details Appointments None recorded. Lab lipid panel, serum 2023 024 [email or web address] 2 [facility] (Lab), [address] [place], [address], 4 08:22:44 CBC w/ auto diff 2023 024 [email or web address] 2 [facility] (Lab), [address] [place], [address], 4 08:22:44 CK (creatine kinase), total, serum 2023 024 [email or web address] 2 [facility] (Lab), [address] [place], [address], 4 08:22:45 glycohemogl obin, total, blood 2023 024 [email or web address] 2 [facility] (Lab), [address] [place], [address], 4 08:22:45 TSH, serum or plasma 2023 024 [email or web address] 2 [facility] (Lab), [address] [place], [address], 4 08:22:45 CMP, serum or plasma 2023 024 [email or web address] 2 [facility] (Lab), [address] [place], [address], 4 08:22:45 urinalysis, dipstick 2023 024 [email or web address] 200 [facility] [address], [place], [address], 4 09:23:32 culture, urine + sensitivity 2023 024 [facility] 200 [facility] (Lab), [address] [place], [address], 4 09:23:32 Referral None recorded. Procedures None recorded. Surgeries None recorded. Imaging None recorded. Medication Orders timolol maleate 0.5 % eye drops 2023 024 [facility] #60637, [address], [id number], 4 13:00:09 Paxlovid 300 mg (150 mg x 2)-100 mg tablets in a dose pack 2023 024 [facility] #00189, [address], [id number], 4 12:58:32 dexamethaso ne 6 mg tablet 2023 024 [facility] #60763, [address], [id number], 4 12:58:33 ciprofloxac in 500 mg tablet 2023 024 [email or web address] #95709, [address] [facility] [address] [place] [address], [id number], 14:21:58 timolol maleate 0.5 % eye drops 2023 024 [facility] #94539, [address] [facility] [address] [place] [address], [id number], 14:44:12 cyanocobala min (vit B-12) 1,000 mcg sublingual tablet 2023 [facility] #42811, [address], [id number], 14:49:34 Patient TargetsNo targets recorded. Patient Instructions Encounter Date Encounter Id Patient Instructions Last Modified By Organization Details Last Modified Time 05/15/2024 [id number] dementia rating scale-2* [email or web address] Not available 05/15/2024 14:27:05 Timed Up and Go test (TUG)* [email or web address] Not available 05/16/2024 08:51:59 alcohol misuse* Not availab le 05/15/2024 14:27:05 depression screening* Not available 05/15/2024 14:27:05 multi-dimensiona l health assessment questionnaire* [email or web address] Not available 05/15/2024 14:27:[address] [facility] Plan and Screening Recommendations Advance Directives - [...] Not available 05/15/2024 14:22:33 recheck [facility] , she will call us if still high [email or web address] Not available 05/24/2024 14:58:30 Reason for Referral None Reported. Results Created Date Observation Date Name Description Value Unit Range Abnormal Flag Note LastModifiedBy Organization Detail LastModifiedTime 03/13/20 24 03/13/2024 urina lysis , dipst ick Leukocytes (reference range: negative frances/ l) Large Not Available [address] [place], [place], [address], 03/13/2024 15:38:21 03/13/20 24 03/13/2024 urina lysis , dipst ick Nitrite (reference rage: negative mg/dl) negati ve Not Available [address] [place], [place], [address], 03/13/2024 15:38:21 03/13/20 24 03/13/2024 urina lysis , dipst ick Urobilinogen (reference range: 0.2-1 mg/dl) 1 Not Available [address] [place], [place], [address], 03/13/2024 15:38:21 03/13/20 24 03/13/2024 urina lysis , dipst ick Protein (reference range: negative mg/dl) Small Not Available [address] [place], [place], [address], 03/13/2024 15:38:21 03/13/20 24 03/13/2024 urina lysis , dipst ick pH (reference range: 5-7) 6.5 Not Available [address] [place], [place], [address], 03/13/2024 15:38:21 03/13/20 24 03/13/2024 urina lysis , dipst ick Blood (reference range: negative Anibal/ l) Large Not Available [address] [place], [place], [address], 03/13/2024 15:38:21 03/13/20 24 03/13/2024 urina lysis , dipst ick Specific [place] (reference range: 1.005-1.030) 1.020 Not Available [address] [place], [place], [address], 03/13/2024 15:38:21 03/13/20 24 03/13/2024 urina lysis , dipst ick Ketone (reference range: negative mg/dl) Negati ve Not Available [address] [place], [place], [address], 03/13/2024 15:38:21 03/13/20 24 03/13/2024 urina lysis , dipst ick Bilirubin (reference range: negative mg/dl) Negati ve Not Available [address] [place], [place], [address], 03/13/2024 15:38:21 03/13/20 24 03/13/2024 urina lysis , dipst ick Glucose (reference range: negative mg/dl) Negati ve Not Available [address] [place], [place], [address], 03/13/2024 15:38:21 03/13/20 24 03/13/2024 urina lysis , dipst ick Appearance Slight ly Cloudy Not Available [address] [place], [place], [address], 03/13/2024 15:38:21 03/13/20 24 03/13/2024 urina lysis , dipst ick Color Yellow Not Available [address] [place], [place], [address], 03/13/2024 15:38:21 02/09/20 24 11/09/2022 MRI, brain + brain stem, w/o contr ast No observ ation record ed. [email or web address] [facility] [address], [place], [address], 03/27/2024 11:00:42 Result Notes None recorded. Problems Name Problem SNOMED Code Status Onset Date Resolution Date Notes Provider Name and Address Organization Details Recorded Time Hyperbili rubinemia 08058453 Active Not Available [facility] 3 09:16:07 Hypomagne semia 183517378 Active Not Available [facility] 3 09:16:07 Abrasion of skin of knee 369211898 Active 2016 Not Available [facility] 3 09:16:07 Pain of right hip joint 09443685446 9102 Active 2021 Not Available [facility] 3 09:16:07 Osteoarth ritis of right hip joint 67453915803 9107 Active 2020 Not Available [facility] 3 09:16:07 Vitamin D deficienc y 63979951 Active Not Available [facility] 3 09:16:07 Arthritis 7651371 Active 2021 Not Available [facility] 3 09:16:07 Spider bite wound 083741939 Completed Not Available [facility] 3 09:16:08 Dysphagia 39633371 Active Not Available [facility] 3 09:16:08 Degenerat mya disorder of macula 488782475 Active 2016 Not Available [facility] 3 09:16:08 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 38273721524 4100 Active 2021 Not Available [facility] 3 09:16:08 Upper respirato ry infection 12014611 Completed Not Available [facility] 3 09:16:08 Hyperlipi demia 94886036 Active Not Available [facility] 3 09:16:08 Essential hypertens ion 95478894 Active Not Available [facility] 3 09:16:08 Malignant essential hypertens ion 44475895 Active Not Available [facility] 3 09:16:08 Hyperglyc emia 26237523 Active Not Available [facility] 3 09:16:08 Fatigue 20450561 Completed Not Available [facility] 3 09:16:08 Reactive depressio n (situatio nal) 61346106 Active Not Available [facility] 3 09:16:08 Iron deficienc y anemia 60850053 Active Not Available [facility] 3 09:16:08 Transient cerebral ischemia 023177349 Active 2022 SADIA Abernathy null, [facility] [employer] 3 12:26:11 Mitral valve regurgita tion 57407600 Active 2022 Michael Oliver MD [address] [place] [address], [place] [address], [place], [address] , [facility] [place] [employer] 3 16:17:30 Impairmen t of balance 335066029 Active 2022 Michael Oliver MD [address], [place], [address] , [facility] [employer] [facility] 3 14:13:51 Impaired fasting glycemia 024617935 Active 2022 Michael Oliver MD [address], [place], [address] , [employer] [facility] [employer] 3 14:22:20 Pre-surge ry evaluatio n Active 2022 RODRIGO Diaz [address], [place], [address] , [employer] [facility] [employer] 3 10:28:10 Hypercalc emia 07064512 Active 2023 RODRIGO Diaz [address], [place], [address] , [employer] [facility] [employer] 4 14:04:30 Serum vitamin B12 below reference range 643115866 Active 2023 RODRIGO Diaz [address], [place], [address] , [employer] [facility] [employer] 4 14:48:28 Dysuria 12235384 Active 2023 Taylor Sotelo RN null, [place] [employer] [facility] [facility] 4 15:38:29 COVID-19 731736783 Active 2023 RODRIGO Diaz [address], [place], [address] , [facility] [employer] [facility] [facility] 4 12:57:32 Burn 684371689 Active 2023 RODRIGO Diaz [address], [place], [address] , [facility] [employer] [facility] [facility] 4 12:06:39 Problem Notes None recorded. Procedures Surgical History Date Name Laterality Status Provider Name and Address Organization Details Recorded Time 4 Medicare Wellness CPT Code, subsequent completed January GABBY Gonzales [facility] [employer] 05/15/2024 14:14:53 3 Hip surgery completed Taylor Sotelo RN [facility] [employer] [facility] 05/15/2024 14:21:15 Breast Surgery completed Not Available [facility] 12/01/2022 09:13:16 Cataract Surgery completed Not Available [facility] 12/01/2022 09:13:16 Imaging Results Imaging Date Name Status LastModified by Organiz ation Details LastModified Time 11/09/2022 MRI, brain + brain stem, w/o contrast completed [address] [facility] [address], [place], [address], 03/27/2024 11:00:42 Procedure Notes None recorded. Medical Equipment None Reported. Allergies Allergen ID Allergen Name Allergen Category Reaction Reaction Severity Criticality Documentation Date Start Date Code Code System Note Provider Name and Address Organization Details Recorded Time 62427 Substance with sulfonami de structure and antibacte rial mechanism of action (substanc e) medicatio n Not available Not available Not available 12/01/2022 52969 8003 SNOMED Not Available [facility] 3 09:20:26 37245 bacitraci n / neomycin / polymyxin B medicatio n Not available Not available Not available 12/01/2022 88760 9 RxNorm Not Available [facility] 3 09:20:26 Medications Name Sig Start [...] Updated DateTime 4 160.02 cm 29.8 kg/m2 83420.5 2 g 97.4 [degF] 56 /min 98 % 98 % 16 /min 120 mm[Hg] 68 mm[Hg] Virginia Morrell RN [facility] [employer] [facility] 4 14:22:12 Date Recorded Body height Body mass index (BMI) Body weight Body temperature Heart rate Respiratory rate Oxygen saturation Oxygen saturation in Arterial blood by Pulse oximetry Systolic blood pressure Diastolic blood pressure Systolic blood pressure Diastolic blood pressure Provider Name and Address Organization Details Last Updated DateTime 4 160.02 cm 29.8 kg/m2 82523.5 2 g 98.2 [degF] 48 /min 16 /min 98 % 98 % 176 mm[Hg] 90 mm[Hg] 154 mm[Hg] 92 mm[Hg] Taylor Sotelo RN [facility] [employer] [facility] 4 15:07:48 Date Recorded Body height Systolic blood pressure Diastolic blood pressure Provider Name and Address Organization Details Last Updated DateTime 06/06/2024 160.02 cm 186 mm[Hg] 72 mm[Hg] Una Barr RN [facility] [employer] [facility] 06/06/2024 15:39:21 Date Recorded Body height Body mass index (BMI) Body weight Body temperature Heart rate Oxygen saturation Oxygen saturation in Arterial blood by Pulse oximetry Respiratory rate Systolic blood pressure Diastolic blood pressure Provider Name and Address Organization Details Last Updated DateTime 4 160.02 cm 30.5 kg/m2 12377.8 9 g 98 [degF] 50 /min 96 % 96 % 16 /min 158 mm[Hg] 68 mm[Hg] Taylor Sotelo RN [place] [facility] MD [employer] [facility] 4 12:46:24 Social History Question Answer Notes LastModified by [employer] Details LastModified Time Tobacco Smoking Status Former Smoker Not Available [employer] 12/01/2022 09:13:00 What Is Your Level Of Alcohol Consumption? Occasional [id number] Information not available 12/01/2022 What Is Your Level Of Caffeine Consumption? Moderate [id number] Information not available 12/01/2022 How Much Tobacco Do You Chew? None [id number] Information not available 12/01/2022 Which Illicit Or Recreational Drugs Have You Used? None [id number] Information not available 12/01/2022 Do You Or Have You Ever Used E-cigarettes Or Vape? 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 05/15/2024 Information not available 05/15/2024 Do You Or Have You Ever Used Smokeless Tobacco? Never Used Smokeless Tobacco [id number] Information not available 12/01/2022 Sex: Unknown Functional Status Question Answer Note LastModified by [employer] Details LastModified Time What is your exercise level? Occasional [id number] Information not available 12/01/2022 Mental Status None recorded. Family History Relationship Description Onset Age of this Age Resolved Age Notes LastModified by Organization Details LastModified Time Father Hypertensive disorder [id number] Not available 12/01/2022 09:13:16 Father Parkinson's disease [id number] Not available 12/01/2022 09:13:16 Mother Hypertensive disorder [id number] Not available 12/01/2022 09:13:16 Mother Hypercholest erolemia [id number] Not available 12/01/2022 09:13:16 Unspecified Relation Malignant tumor of colon [place] FAITH [id number] Not available 12/01/2022 09:13:16 Medical History Condition Response BLINDNESS N KIDNEY STONES N MRSA N CARPAL TUNNEL SYNDROME N LUNG DISEASE/DISORDER N HISTORY OF DRUG ABUSE N RADIATION / CHEMOTHERAPY N COPD N SPORTS INJURY N ANKLE PAIN N BLOOD DISEASES N SCHIZOPHRENIA N SHINGLES N BOWEL PROBLEMS N SHOULDER PAIN N DEPRESSION (INCLUDING POST ) N STROKE/TIA N KNEE PAIN N ULCERS N BENIGN PROSTATIC HYPERPLASIA N OBESITY N [...] FOOT PROBLEM N HEART VALVE DISORDERS N ALLERGIES/HAYFEVER N SOFT TISSUE INJURY N INFECTIOUS DISEASE N HEART ARRHYTHMIA N INSOMNIA N RHEUMATOID ARTHRITIS N HIGH CHOLESTEROL / HYPERLIPIDEMIA N EDEMA N CHRONIC PAIN SYNDROME N CAROTID BLOCKAGE N BACK / NECK PROBLEMS N HAVE YOU BEEN HOSPITALIZED OR SEEN IN [facility] ER IN THE PAST YEAR ? N BURSITIS N HERNIATED DISC N DIALYSIS N FIBROMYALGIA N OSTEOPOROSIS N ARTHRITIS Y NO SIGNIFICANT PAST MEDICAL HISTORY N PERIPHERAL NEUROPATHY N DIABETES, TYPE Y HEARTBURN / REFLUX N HEPATITIS / LIVER DISEASE N GOUT N SLEEP DISORDER N ALZHEIMER'S DISEASE N HERPES N SEIZURES/EPILEPSY N HEADACHES/MIGRAINES N VASCULAR DISEASE N HIP PAIN N Blood Disorder N DIZZINESS N HEAD TRAUMA OR INJURY [...] 3 completed EBEN Geller, [place] - [facility] [employer] 08/19/2023 09:41:56 RSV, recombinant, protein subunit RSVpreF, adjuvant reconstituted, 0.5 mL, PF 3 completed EBEN Geller, [facility] 08/19/2023 10:05:48 COVID-19, mRNA, LNP-S, PF, shiloh-sucrose, 30 mcg/0.3 mL 4 completed Jenn Lawler null, [facility] 06/11/2024 14:08:50 Influenza, split virus, quadrivalent, preservative 0 completed Yazmin Cortez CMA null, [facility] 07/19/2023 14:03:47 Influenza, split virus, quadrivalent, preservative 0 completed Yazmin Cortez CMA null, [facility] 07/19/2023 14:03:47 Pneumococcal conjugate PCV 13 0 completed Yazmin Cortez CMA null, [facility] 07/19/2023 14:03:47 pneumococcal polysaccharide PPV23 7 completed Not Available [facility] 12/01/2022 09:20:22 Influenza, high-dose, quadrivalent, PF 1 completed Not Available [facility] 12/01/2022 09:20:22 Influenza, high-dose, quadrivalent, PF 0 completed Not Available [facility] 12/01/2022 09:20:22 Influenza, high-dose, trivalent, PF 0 completed Not Available [facility] 12/01/2022 09:20:22 Past Encounters Encounter ID Performer Location Encounter Start Date Encounter Closed Date Diagnosis/Indication Diagnosis SNOMED-CT Code Diagnosis ICD10 Code Diagnosis Note [id number] [facility] Lisa melgoza [address] [place] [address] 02/04/2021 00:00:00 02/04/2021 16:05:32 [id number] [facility] Primary Care Kyle melgoza [address] [facility] [address] [place] [address] 09/01/2021 00:00:00 09/01/2021 13:13:46 [id number] [facility] Lisa melgoza [address] [place] [address] 09/16/2021 00:00:00 09/17/2021 10:28:51 [id number] [facility] [address] [place] [address] 10/30/2021 00:00:00 10/30/2021 10:42:32 [id number] [facility] [address] [place] [address] 11/27/2021 00:00:00 11/27/2021 11:10:19 [id number] [facility] Fabian abad [address] [place] [address] 01/06/2022 00:00:00 01/06/2022 10:49:43 [id number] [facility] [address] [place] [address] 02/19/2022 00:00:00 02/21/2022 19:46:28 [id number] [facility] Fabian abad [address] [place] [address] 05/03/2022 00:00:00 05/03/2022 15:06:22 [id number] [facility] [address] [facility] [address] [facility] [place] [address] 05/07/2022 00:00:00 05/07/2022 15:47:30 [id number] [facility] [address] [place] [address] 06/11/2022 00:00:00 06/11/2022 10:09:41 [id number] [facility] [address] [place] [address] 06/30/2022 00:00:00 07/04/2022 07:15:21 [id number] [facility] [address] [place] [address] 07/28/2022 00:00:00 07/28/2022 12:36:13 [id number] [facility] [place] [address] [place] [address] [place] [address] 08/19/2022 00:00:00 08/19/2022 11:15:30 [id number] Michael Oliver MD [facility] [place] [address] [place] [address] [place] [address] 01/18/2023 15:54:43 01/18/2023 16:53:22 Mitral valve regurgitation 79859974 I34.0 [id number] Kevin Melara MD [facility] [place] [address] [place] [address] 06/01/2023 10:18:03 06/08/2023 09:10:31 History of total replacement of right hip joint 2595464639 35205 Z96.046 [id number] Michael Oliver MD [facility] [place] [address] [place] [address] [place] [address] 07/19/2023 13:48:11 07/19/2023 14:27:38 Impairment of balance 251700555 R26.89 Going to PT. Essential hypertension 83567600 I10 Continue BP meds. Hyperlipidemia 12315939 E78.5 Immunization due 4678451 08 Z28.39 Impaired f asting glycemia 841720276 R73.01 [id number] RODRIGO Diaz [facility] [place] [address] [place] [address] [place] [address] 09/27/2023 10:06:11 09/27/2023 10:27:58 Pre-surgery evaluation 492078925 Z01.762 [id number] RODRIGO Diaz [facility] [place] [address] [place] [address] [place] [address] 12/06/2023 14:09:38 12/06/2023 14:52:46 Hyperlipidemia 23656226 E78.5 Vitamin D deficiency 347 49893 E55.9 Osteoarthr itis of right hip joint 8486082206 23226 M16.11 Iron defic iency anemia 08677912 D50.9 Degenerati ve disorder of macula 473674852 H35.30 Serum naveen min B12 below reference range 084811012 R79.89 Arthritis 0337275 M13.85 1 Essential hypertension 96139474 I10 Hypomagnesemia 190749608 E83.42 Impaired f asting glycemia 330896304 R73.01 [id number] RODRIGO Diaz [facility] [place] [address] [facility] [place] [address] 03/13/2024 15:24:56 03/30/2024 16:08:38 Dysuria 42213817 R30.0 [id number] RODRIGO Diaz [facility] [place] [address] [place] [address] 05/15/2024 13:52:05 05/15/2024 14:39:13 Adult health examination 349588123 Z00.00 Screening for disorder 345068171 Z13.9 Essential hypertension 79276580 I10 Hyperlipidemia 68632140 E78.5 Arthritis 6996077 M13.85 1 Degenerati ve disorder of macula 599324548 H35.30 Iron defic iency anemia 97455457 D50.9 Mitral yesika ve regurgitation 01404322 I34.0 Serum naveen min B12 below reference range 841109162 R79.89 Vitamin D deficiency 347 75739 E55.9 [id number] RODRIGO Diaz [facility] [place] [address] [place] [address] 06/06/2024 15:26:33 06/12/2024 04:04:03 [id number] RODRIGO Diaz [facility] [place] [address] [place] [address] 06/13/2024 12:18:08 06/13/2024 13:02:38 COVID-19 726044263 U07.1 Degenerati ve disorder of macula 803084580 H35.30 Arthritis 4843102 M13.85 1 Essential hypertension 77157561 I10 Hyperlipidemia 34030728 E78.5 Hypomagnesemia 228098722 E83.42 Iron defic iency anemia 75583307 D50.9 Mitral yesika ve regurgitation 50769954 I34.0 Osteoarthr itis of right hip joint 9732693771 55581 M16.11 Serum naveen min B12 below reference range 240134220 R79.89 Transient cerebral ischemia 080103666 G45.9 Vitamin D deficiency 347 59737 E55.9 Health Concerns Section Related Observation LastModified by Organization Detai ls LastModified Time None Recorded Concern Status LastModified by Organization Details LastModified Time None Recorded Advance Directives Directive None Recorded Payers Encounter Date Sequence Insurance Name Policy Number Policy Wisdom Covered Member ID Wisdom Member ID Guarantor Name 12/06/2023 1 [place] Donna K Krumm [id number] Donna K Krumm 12/06/2023 2 [employer] [place] - PLAN G (MEDICARE SUPPLEMENT) Donna K Krumm [id number] Donna Clotilde Krumm 03/13/2024 1 [place] Donna K Krumm [id number] Donna K Krumm 03/13/2024 2 [employer] [place] - PLAN G (MEDICARE SUPPLEMENT) Donna K Krumm [id number] Donna K Krumm 05/15/2024 1 [place] Donna K Krumm [id number] Donna K Krumm 05/15/2024 2 [employer] [place] - PLAN G (MEDICARE SUPPLEMENT) Donna K Krumm [id number] Donna K Krumm 06/06/2024 1 [place] Donna K Krumm [id number] Donna K Krumm 06/06/2024 2 [employer] [place] - [employer] G (MEDICARE SUPPLEMENT) Donna K Krumm [id number] Donna Good 06/13/2024 1 [place] Donna Good [id number] Donan Good 06/13/2024 2 [employer] [place] - PLAN G (MEDICARE SUPPLEMENT) Donna oGod [id number] Donna Good Notes Date Note Type Note Provider Name and Address Organization Details Recorded Time 12/06/2023 text/html no changes RODRIGO Diaz [address], [place], [address], [employer] 12/11/2023 16:43:55 05/15/2024 text/html surgery on right hip in 2022.. no calf cramps , has Covid , she has tested neg twice . yesterday included , no symptoms RODRIGO Diaz [address], [place], [address], [employer] 05/24/2024 15:00:12 06/13/2024 text/html fell back hit head , no loc RODRIGO Diaz [address], [place], [address], [employer] 06/30/2024 16:56:05 OBGyn Episode No OBEpisode recorded.
--- OUTSIDE RECORDS SUMMARY | 2025-01-28 18:13 | XMS_ITS | Clinical Summary ---
[facility] [place] Address [address] [place] [address] Care Team Providers Care Perfume Maker Name Role Phone Dannielle Perdue NP Unavailable [phone] Guy Muñoz Primary Care Provider [phone] Allergies Active Allergy Reactions Criticality Noted Date Comments Bacitracin-Polymyxin B Rash Medium 05/19/2024 Qnxlqdjm-Nbevpebuij-Vgdzoanul Unknown 2021 Sulfa (Sulfonamide Antibiotics) Unknown,Rash Medium [...] mupirocin (BACTROBAN) 2 % ointment Active vit C,H-Ab-qrzdg-anisha tein-zeaxan (PreserVision AREDS-2) 250-90-40-1 mg capsule Take [...] on file 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 Gender Identity Female 04/21/2022 1:49 PM CDT Sexual Orientation Not on file Obstetrics History Last Filed Vital Signs Vital Sign Reading Time Taken Comments Blood Pressure 162/70 07/25/2024 10:55 AM CDT Pulse 60 07/25/2024 10:55 AM CDT Temperature 36.3 C (97.3 F) 07/25/2024 10:55 AM CDT Respiratory Rate 18 12/03/2022 10:04 AM AIRCRAFT PILOT Oxygen Saturation 98% 07/25/2024 10:55 AM CDT [...] , 07/15/2020, Additional history exists Insurance MEDICARE [employer] [place] [employer] [place] Care Teams Perfume Maker Relationship Specialty Start Date End Date Guy Muñoz PA [address] [place] [id number] PCP - General Family Medicine 07/25/24 Dannielle Perdue NP [facility] [place] [address] Nurse Practitioner 10/22/22
--- OUTSIDE RECORDS SUMMARY | 2025-01-28 18:13 | XMS_ITS | Referral Summary ---
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 Name Role Phone Dannielle Perdue NP Unavailable [phone] Guy Muñoz Primary Care Provider [phone] Allergies Active Allergy Reactions Criticality Noted Date Comments Bacitracin-Polymyxin B Rash Medium 05/19/2024 Vphtqadu-Mjttmcrbed-Jtwprjywb Unknown 2021 Sulfa (Sulfonamide Antibiotics) Unknown,Rash Medium [...] mupirocin (BACTROBAN) 2 % ointment Active vit C,I-Xz-nxvjp-anisha tein-zeaxan (PreserVision AREDS-2) 250-90-40-1 mg capsule Take [...] on file 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 Gender Identity Female 04/21/2022 1:49 PM CDT Sexual Orientation Not on file Last Filed Vital Signs Vital Sign Reading Time Taken Comments Blood Pressure 162/70 07/25/2024 10:55 AM CDT Pulse 60 07/25/2024 10:55 AM CDT Temperature 36.3 C (97.3 F) 07/25/2024 10:55 AM CDT Respiratory Rate 18 12/03/2022 10:04 AM CLOTH WINDING SUPERVISOR Oxygen Saturation 98% 07/25/2024 10:55 AM CDT Inhaled Oxygen Concentration - - Weight 76.2 kg (168 lb) 07/25/2024 10:55 AM CDT Height 160 cm (5' 3 ) 07/25/2024 10:55 AM CDT Body Mass Index 29.76 07/25/2024 10:55 AM CDT Plan of Treatment Not on file Insurance MEDICARE [facility] [place] [id number] MEDICARE [facility] Care Teams Restaurant Kitchen Manager Relationship Specialty Start Date End Date Guy Muñoz PA [address] [place] [address] PCP - General Family Medicine 07/25/24 Dannielle Perdue NP [facility] [place] [address] Nurse Practitioner 10/22/22
--- OUTSIDE RECORDS SUMMARY | 2025-01-28 18:14 | XMS_ITS | Continuity of Care Document ---
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 No Information 2-201 0 Krishnasamy Jim. [address], [facility], [place]. tel:[phone] [facility], [address] [place] [address] [address], [place], [place], [id number], [place] tel:[phone] [facility] No Information 7-200 9 Krishnasamy Jim. [address] [facility] [address], [place], [place], [facility], [place]. tel:[phone] Office/outpat ient Visit, [facility], [address] [place] [address] [address], [place], [place], [id number], [place] tel:[phone] [facility] No Information 9-200 7 Felisha Le. [address] [place], [place], [id number], . tel:[phone] Referring Provider: Rey Felisha Waldron, [address] [facility], [place], [address] . tel:[phone] Family History Family Member Type Diagnosis Age At Onset No Information Payers Payer name Insurance type Covered green party ID Authoriza tion(s) [place] [id number] [facility] [id number] Social History Type Description Quantity Date Captured [...]
== END 2025-01-28 16:57 | disposition home or self-care (01) ==
PROVIDERS: Emergency Provider Nurse Practitioner Family; PCP Physician Assistant Medical
DX: J20.9 Acute bronchitis, unspecified (principal); Z20.822 Contact with and (suspected) exposure to COVID-19; I10 Essential (primary) hypertension; E78.00 Pure hypercholesterolemia, unspecified; M19.90 Unspecified osteoarthritis, unspecified site; Z96.641 Presence of right artificial hip joint
CPT/HCPCS: 87426; 87804; 99213; G0463

== ENCOUNTER 2025-06-29 15:09 | Emergency (ER) | payer MEDICARE, OTHER, SELFPAY ==
--- NOTE | 2025-06-29 15:10 | ED.URI ---
HPI - URI/Sore Throat General Chief Complaint: Upper Respiratory Infection Stated Complaint: Stuffy Nose Time Seen by Provider: 06/29/25 15:10 Source: patient Mode of arrival: ambulatory Limitations: no limitations History of Present Illness HPI Narrative: Donna is an 85-year-old female patient presenting to the clinic today with complaints of cough, headache, nasal congestions, and head congestion x4 days. She reports they recently got off a cruise. States her was sick on the cruise and was tested for COVID and influenza testing and it was negative and his symptoms have improved but now she is sick. Denies any chest pain or shortness of breath. No fevers, chills, body aches. Has taken flonase for her symptoms. Related Data Home Medications ?Medication ?Instructions ?Recorded ?Confirmed ?Last Taken ?Type cholecalciferol (vitamin D3) 25 25 mcg PO HS 05/17/22 07/05/24 05/27/22 History mcg (1,000 unit) capsule coenzyme Q10 100 mg capsule 100 mg PO HS 05/17/22 07/05/24 05/27/22 History (CoQ-10) cyanocobalamin (vitamin B-12) 1,000 mcg PO HS 05/17/22 07/05/24 05/27/22 History 1,000 mcg tablet fluorometholone 0.1 % eye 1 drp BID 05/17/22 07/05/24 05/30/22 History drops,suspension hydrochlorothiazide 25 mg tablet 25 mg HS 05/17/22 07/05/24 05/30/22 History Held on 06/02/22. Instructions: until you follow up with your Primary care provider irbesartan 300 mg tablet 300 mg HS 05/17/22 07/05/24 05/30/22 History simvastatin 20 mg tablet 20 mg HS 05/17/22 07/05/24 05/30/22 History timolol maleate 0.5 % eye drops 1 drp BID 05/17/22 07/05/24 05/30/22 History vit C 250 mg-vit E 90 mg-zinc 40 1 tablet PO HS 05/17/22 07/05/24 05/27/22 History mg-copper 1 ta-whtnun-tdpdkt capsule (PreserVision AREDS-2) ketorolac 0.5 % eye drops drp 12/20/24 Unknown History Allergies Allergy/AdvReac Type Severity Reaction Status Date / Time Sulfa (Sulfonamide Allergy Unknown Rash Verified 01/28/25 16:19 Antibiotics) bacitracin (From Neosporin Allergy Rash Verified 01/28/25 16:19 ([id number])) neomycin (From Neosporin Allergy Rash Verified 01/28/25 16:19 ([id number])) polymyxin B (From Neosporin Allergy Rash Verified 01/28/25 16:19 ([id number])) Review of Systems Review of Systems: Pertinent positives per HPI. Patient denies any fever, chills, rash, visual changes, dizziness, shortness of breath, chest pain, palpitations, nausea, vomiting, diarrhea, constipation, abdominal pain, or any urinary issues. 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 History of vein stripping Left leg. History of left breast biopsy (03/22/00) Benign histology. Social History Social History Social History: Surrogate medical decision maker: Drew Good, spouse. Code status: Full code. Smoking status: Never smoker Second hand tobacco smoke exposure: No Alcohol intake: current Drinks per week: 1 Substance use: never Substance use type: does not use Living arrangements: with family Occupation/Education: retired Spiritual care concerns: No Comments At the time of my signature, I reviewed and agree with the nursing past medical, surgical, social, and family history. There is no relevant family history pertinent to the patient complaint. Exam Narrative: General: Well-developed, well nourished, in no apparent distress Head: Normocephalic, atraumatic Eyes: Pupils equally round and reactive to light bilaterally, EOM intact, sclera and conjunctive clear, no discharge, lids normal Ears: TMs intact and congested, ear canals clear, no drainage, grossly hearing normal. Nose: Nares patent, clear nasal discharge, no inflammation, no sinus tenderness. Mouth: Oral pharynx without lesions or masses, good dentition, MMM. Postnasal drip Neck: Supple, trachea midline, no enlargement of anterior or posterior cervical nodes, no thyroid masses or goiter palpable. Cardio: Regular rate and rhythm, s1 and s2 normal, no murmur appreciated. Resp: Clear to auscultation bilaterally, no rhonchi, rales, wheezing or rubs Course Course Emergency Course: Portions of this record may have been created with voice recognition software. Level of Care: Express Care Visit Vital Signs Vital signs: Vital Signs Temperature 36.8 C 06/29/25 15:21 Pulse Rate 56 L 06/29/25 15:21 Respiratory Rate 18 06/29/25 15:21 Blood Pressure 152/67 H 06/29/25 15:21 Pulse Oximetry 97 06/29/25 15:21 Oxygen Delivery Room Air 06/29/25 15:21 Temperature 36.8 C 06/29/25 15:21 Pulse Rate 56 L 06/29/25 15:21 Respiratory Rate 18 06/29/25 15:21 Blood Pressure 152/67 H 06/29/25 15:21 Pulse Oximetry 97 06/29/25 15:21 Oxygen Delivery Room Air 06/29/25 15:21 Vital signs reviewed MDM - URI/Sore Throat MDM Narrative Medical decision making narrative: At the time of visit patient is resting comfortably on the exam table. Patient appears to be nontoxic. Complaints of cough, headache, nasal congestions, and head congestion x4 days. She reports they recently got off a cruise. States her was sick on the cruise and was tested for COVID and influenza testing and it was negative and his symptoms have improved but now she is sick. Denies any chest pain or shortness of breath. No fevers, chills, body aches. Has taken flonase for her symptoms. On exam patient has clear nasal drainage, bilateral TMs intact with congestion, mild erythema to the anterior turbinates, postnasal drip, lung sounds are clear, heart rates regular rate rhythm, COVID and influenza testing was ordered. Vital signs are stable. Labs: COVID and influenza testing was performed and was negative in the clinic today. Plan: I suspect patient has URI. Supportive measures were discussed with the patient and they voiced understanding discharge instructions and agrees to treatment plan. Return precautions reviewed Differential Diagnosis Differential diagnosis: Likely upper respiratory infection, otitis media, sinusitis, viral infection, bronchitis, influenza, pharyngitis and other (COVID) Lab Data Labs: Lab Results 06/29/25 Range/Units 15:33 POC Influenza A Ag Negative (Negative) POC Influenza B Ag Negative (Negative) POC SARS CoV-2 Ag Negative (Negative) Discharge Plan Discharge Clinical Impression: URI (upper respiratory infection) Qualifiers: URI type: unspecified viral URI Qualified Code(s): J06.9 - Acute upper respiratory infection, unspecified Patient Disposition: Home Condition: Stable Instructions: Antibiotic Form, Cold Symptoms (ED) Additional Instructions: COVID and influenza testing was negative in the clinic today. May take Coricidin HBP for cold/flu symptoms Increase fluids and stay well hydrated May take Tylenol or motrin as directed on bottle for pain/fever May use Flonase 1 spray in each nare daily May take OTC antihistamines such as Zyrtec or Claritin daily as directed on bottle May apply Vicks vapor rub to chest to open sinuses Sinus rinses for congestion Cepacol spray, cough drops, throat lozenges, warm tea with honey/lemon, gargle salt water to soothe throat BRAT diet for diarrhea Clear liquids x 24 hours then advance as tolerated for nausea/vomiting Go to the ED if you develop a worsening in your condition- high fever not controlled by Tylenol or Motrin, dehydration, weakness, lethargy, shortness of breath, or chest pain. Follow up with your PCP in 3-5 days if symptoms persist. Patient Language: Belarusian Prescriptions: No Action mupirocin 2 % ointment 1 applic topical BID Qty: 15 0RF ketorolac 0.5 % drops nystatin 100,000 unit/gram cream 1 applic topical TID 14 Days Qty: 30 0RF doxycycline hyclate 100 mg capsule 100 mg PO BID 7 Days Qty: 14 0RF benzonatate 200 mg capsule 200 mg PO TID PRN (Reason: cough) Qty: 20 0RF methylprednisolone [Medrol (Nima)] 4 mg tablets,dose pack See Rx Instructions PO .COMPLEX Qty: 21 0RF Rx Instructions: orally per package directions cyanocobalamin (vitamin B-12) 1,000 mcg Tablet 1,000 mcg PO HS simvastatin 20 mg tablet 20 mg HS fluorometholone 0.1 % drops,suspension 1 drp BID Patient Comments: EACH EYE hydrochlorothiazide 25 mg tablet 25 mg HS timolol maleate 0.5 % drops 1 drp BID Patient Comments: EACH EYE irbesartan 300 mg tablet 300 mg HS cholecalciferol (vitamin D3) 25 mcg (1,000 unit) Capsule 25 mcg PO HS coenzyme Q10 [CoQ-10] 100 mg Capsule 100 mg PO HS PreserVision AREDS-2 250-90-40-1 mg Capsule 1 tablet PO HS acetaminophen 500 mg Tablet 1,000 mg PO Q6HR Qty: 90 0RF Follow-up/Referrals: Toni,RODRIGO Tovar [Primary Care Provider, Unknown] Time of Disposition: 15:34 Quality NIHSS Nursing Documentation ED NIHSS nursing documentation: reviewed/agree
[2025-06-29 15:21] VITALS: BP 152/67; PULSE 56; RESP 18; TEMP 36.8; O2SAT 97
[2025-06-29 15:35] LABS: EDCOVIDSCREEN Negative (Negative); EDINFLUASCREEN Negative (Negative); EDINFLUBSCREEN Negative (Negative)
== END 2025-06-29 15:38 | disposition home or self-care (01) ==
PROVIDERS: Emergency Provider Nurse Practitioner Family; PCP Physician Assistant Medical
DX: J06.9 Acute upper respiratory infection, unspecified (principal); Z20.822 Contact with and (suspected) exposure to COVID-19; I10 Essential (primary) hypertension; E78.00 Pure hypercholesterolemia, unspecified; M19.90 Unspecified osteoarthritis, unspecified site; Z96.641 Presence of right artificial hip joint
CPT/HCPCS: 87426; 87804; 99212; G0463